=== PATIENT | female | born 1965 | race Caucasian/White ===

== ENCOUNTER 2023-05-17 22:36 | Outpatient (CLI) | payer BC, SELFPAY ==
[2023-05-17 18:45] LABS: Coronavirus 19, PCR Not Detected (NotDetected); Influenza A, PCR Not Detected (NotDetected); Influenza B, PCR Not Detected (NotDetected)
== END 2023-05-17 23:59 ==
LOC: LAB.DROPOF 22:36
PROVIDERS: PCP Nurse Practitioner; Visit Provider Nurse Practitioner
DX: J06.9 Acute upper respiratory infection, unspecified (principal); R51.9 Headache, unspecified; J02.9 Acute pharyngitis, unspecified
CPT/HCPCS: 87636

== ENCOUNTER 2024-07-04 09:33 | Inpatient (IN) | payer OTHER, SELFPAY ==
[2024-07-04] VITALS (21 sets, daily range): BP systolic 84–109; BP diastolic 55–76; PULSE 69–115; RESP 16–35; TEMP 36.4–36.8; O2SAT 87–100; BMI 21.2
--- NOTE | 2024-07-04 09:37 | ECG_ITS ---
APPROVED REPORT Exam: Resting ECG HR:108 bpm ECG Measurements Heart Rate 108 AXES [place] 120 P 85 QRSd 84 QRS 86 QT 305 T 76 QTc 368 Conclusion Sinus tachycardia Electronically signed by : VITOR LAU, 07/04/2024 14:57:18
--- NOTE | 2024-07-04 09:39 | PC.NURSE ---
respiratory notified of bi-pap order
--- NOTE | 2024-07-04 09:42 | XR_ITS ---
FINAL REPORT CLINICAL HISTORY: COPD exacerbation, hypoxia, soa FINDINGS: A single AP view of the chest was obtained. There is no prior exam for comparison. Bilateral hilar fullness could be vascular. Lymphadenopathy is not excluded. There is emphysema with increased interstitial markings which could represent edema or pneumonia. There are likely small bilateral pleural effusions. There is no pneumothorax. IMPRESSION: Emphysema with increased interstitial markings could represent edema or pneumonia with likely small pleural effusions. Bilateral hilar fullness could be vascular. Lymphadenopathy is not excluded. Reviewed, Interpreted and Dictated by Aminah Latif MD Transcribed by Amber Gould Authenticated and [facility]
--- NOTE | 2024-07-04 09:52 | PC.NURSE ---
xr at bedside
[2024-07-04 09:55] LABS: Lactate Venous 1.9 mmol/L (0.4-2.0); VBG Base Excess -6.8 mmol/L (-2.4-2.3); VBG HCO3 21.8 mmol/L (23-30); VBG Oxygen Saturation 61.8 % (50-70); VBG PO2 36.3 mmol/L (28-40); VBG Total CO2 23.6 mmol/L (23-27)
[2024-07-04 09:59] LABS: Basophils % 0.3 % (0.1-2.0); Eosinophils % 0.2 % (0.1-12.0); Hematocrit 46.7 % (37.0-47.0); Hemoglobin 15.2 g/dL (12.2-16.2); Lymphocytes # 1.1 K/mm3 (0.7-4.5); Lymphocytes % 11.1 % (10-50); Mean Corpuscular HGB Conc 32.5 g/dL (31.8-35.4); Mean Corpuscular Hemoglobin 30.3 pg (27.0-31.2); Mean Platelet Volume 10.9 fl (7.4-10.4); Monocytes # 0.7 K/mm3 (0.1-1.0); Monocytes % 6.6 % (1.7-9.3); Neutrophils # 8.1 K/mm3 (1.8-7.8); Neutrophils % 81.3 % (37.0-80.0); Platelet Count 159 K/mm3 (142-424); Red Blood Count 5.02 M/mm3 (4.20-5.40); Red Cell Distribution Width 14.1 % (11.5-17.5)
[2024-07-04] MEDS: METHYLPREDNISOLONE SOD SUCC 125MG VIAL 125 MG IV (10:00)
[2024-07-04] MEDS: MAGNESIUM SULFATE IN WATER 2 GM/50 ML PIGGYBACK IV (10:00)
--- NOTE | 2024-07-04 10:00 | PC.NURSE ---
vbg results given to md menchaca ph 7.17 co2 61 lactate 1.9
[2024-07-04 10:01] LABS: VBG PH 7.17 mmol/L (7.31-7.41)
[2024-07-04] MEDS: IPRATROPIUM/ALBUTEROL 3 ML NEB 9 ML IH (10:12)
[2024-07-04] MEDS: CEFTRIAXONE SODIUM 2 GM in 0.9 % SODIUM CHLORIDE 100 ML IV (10:21)
[2024-07-04 10:25] LABS: INR 0.99 (0.9-1.1); Prothrombin Time 11.1 seconds (10.1-12.5)
[2024-07-04 10:29] LABS: Alanine Aminotransferase 19 U/L (12-78); Albumin Level 4.2 g/dl (3.5-5.0); Albumin/Globulin Ratio 1.1 (1.1-1.8); Alkaline Phosphatase 94 U/L (38-126); Anion Gap 18.9 mEq/L (5-15); Aspartate Amino Transferase 28 U/L (14-36); Bilirubin,Total 0.4 mg/dl (0.2-1.3); Blood Urea Nitrogen 10 mg/dl (7-17); Calcium 9.4 mg/dl (8.4-10.2); Carbon Dioxide 22 mmol/L (22.0-30.0); Chloride 104 mmol/L (98-107); Creatinine Clearance Estimated 59 mL/min (50-200); Estimated Glomerular Filt Rate 65 ml/min (>60); GFR (African American) 78 ML/MIN (>60); Globulin 3.7 g/dL (1.3-3.2); Glucose 143 mg/dl (74-100); Potassium 4.9 mmoL/L (3.5-5.1); Sodium 140 mmol/L (136-145); Total Protein,Serum 7.9 g/dl (6.3-8.2)
[2024-07-04] MEDS: AZITHROMYCIN 500 MG in 0.9 % SODIUM CHLORIDE 250 ML 250 MG IV (10:30)
[2024-07-04 10:38] LABS: D-Dimer 1.11 ug/mL (0.0-0.5)
[2024-07-04 10:39] LABS: NT Pro Brain Natriuretic Pep. 775 pg/mL (0-125)
[2024-07-04 10:42] LABS: Troponin I < 0.01 ng/ml (0.00-0.034)
[2024-07-04 10:46] LABS: T4 (Thyroxine) 7.5 ug/dl (5.53-11.0)
--- NOTE | 2024-07-04 10:47 | ED_ITS ---
Discharge Plan Disposition Patient Disposition: Admitted Chief Complaint: Shortness of Breath/Dyspnea Prescriptions Prescriptions: No Action fluticasone propionate 50 mcg/actuation spray,suspension 1 spray intranasal DAILY Qty: 16 10RF clonazepam 1 mg tablet 1 mg PO DAILYP PRN (Reason: anxiety) gabapentin 800 mg tablet 800 mg PO QIDP PRN (Reason: Moderate Pain (Scale Score 5-6)) albuterol sulfate 90 mcg/actuation HFA aerosol inhaler 2 puff inhalation QIDP PRN (Reason: shortness of breath or wheezing) Rx Instructions: please provide with spacer and instructions Referrals Follow up/Referrals: Dannie Miles MD [Primary Care Provider] - See instructions Clinical Impressions Clinical Impression: Acute exacerbation of chronic obstructive pulmonary disease, Acute hypoxemic respiratory failure, Acute hypercapnic respiratory failure Print Language Print Language: Bol[place]ian Discharge ED Provider: Mikey Spence General Chief Complaint: Shortness of Breath/Dyspnea Stated Complaint: SOA Time Seen by Provider: 07/04/24 09:35 Mode of Arrival: Family Vehicle Source of Information: Patient Description of Symptoms (Recalled from ER Triage Doc. by RN): pt presents with soa and wheezing and cough that has gotten worse over last 2-3 days, pt smokes and has copd. pt can only speak one word at a time and is 81% on room air, 4L of O2 applied via nasal cannula during triage History of Present Illness HPI narrative: Please note that above description of symptoms, in this electronic medical record under categorization of recalled from ER triage doctor by RN are reflective of an initial nursing assessment, however, is not reflective of my full history and physical exam that was personally taken and clarified. Consequentially, this preceding description of symptoms, which may include the patient's categorized chief complaint in the EMR, do not reflect my personal clinical impression, and the ultimate description of history of present illness and patient stated complaints should be deferred to this section of the note. Unless stated otherwise or congruent with this section of the note, additional signs, symptoms, or incongruence should be interpreted as inaccurate with my clinical impression. Related Data Home Medications ?Medication ?Instructions ?Recorded ?Confirmed albuterol sulfate 90 mcg/actuation 2 puff inhalation QIDP PRN 07/04/24 07/04/24 aerosol inhaler shortness of breath or wheezing clonazepam 1 mg tablet 1 mg PO DAILYP PRN anxiety 07/04/24 07/04/24 gabapentin 800 mg tablet 800 mg PO QIDP PRN Moderate Pain 07/04/24 07/04/24 (Scale Score 5-6) Previous Rx's ?Medication ?Instructions ?Recorded fluticasone propionate 50 1 spray intranasal DAILY #16 grams 02/15/24 mcg/actuation nasal spray,suspension Allergies Allergy/AdvReac Type Severity Reaction Status Date / Time sumatriptan (From Imitrex) AdvReac Severe Tachycardia Verified 07/04/24 09:54 [facility] Disclaimer: The information contained in this section may have been updated after the patient was seen, as this information can be updated by other users. Medical History Long-term current use of anticonvulsant Dependence on nocturnal oxygen therapy Secondary polycythemia COPD (chronic obstructive pulmonary disease) Emphysema of lung Epilepsy Surgical History H/O: hysterectomy History of appendectomy History of cholecystectomy Family History Diabetes Brother Mother Adopted Social History Smoking Status: Current every day smoker alcohol intake: never substance use type: denies use current occupational status: employed Travel in the last 8 weeks: None Other Medical History Have you received the Pneumonia Vaccine: No ROS Obtained: Yes All systems reviewed & no additional complaints except as documented Physical Exam General General appearance: alert and in distress Neck Neck exam: Present trachea midline Chest Chest inspection: Present normal inspection and symmetric chest wall rise Respiratory Respiratory exam: Present respiratory distress, wheezes, accessory muscle use and prolonged expiratory phase; Absent stridor Cardiovascular Cardiovascular exam: Present normal rhythm, tachycardia and other (Pulses equal and symmetric in upper and lower extremities) Extremities Exam Extremities exam: Absent edema Neurological Exam Neurological exam: Present alert, oriented X3 and CN II-XII intact Skin Skin exam: Present warm and dry; Absent cyanosis, diaphoresis or pallor HEART Score HEART Score HEART Score assessment performed?: Yes HEART Score: 2 Critical Care Critical Care Time Critical Care Time: Yes (resp, ID) Attestation: On 07/04/24, the high probability of a clinically significant, sudden or life threatening deterioration of the following system(s) required my full and direct attention, intervention and personal management. The time I documented below is in addition to time spent performing reported procedures but includes the following listed in this critical care notation. Total Time Total Critical Care Time: 60 Medical Decision Making Medical Records Medical records reviewed: Yes I reviewed the patient's medical records. Suresh Inquiry Pt receiving controlled substance: No Suresh was queried for this patient: No Vital Signs Vital Signs: 07/04/24 09:39 07/04/24 09:45 07/04/24 09:45 Temperature Temperature Source Pulse Rate 98 H 109 H Pulse Rate [Left Radial] Respiratory Rate Blood Pressure 106/76 L Blood Pressure [Right Arm] Blood Pressure Mean Blood Pressure Mean [Right Arm] 02 Sat by Pulse Oximetry 87 L Oxygen Delivery Method Nasal Cannula Oxygen Flow Rate (LPM) Fraction of Inspired Oxygen 40 07/04/24 09:45 07/04/24 09:47 07/04/24 10:00 Temperature 97.8 F Temperature Source Axillary Pulse Rate 115 H 97 H Pulse Rate [Left Radial] 108 H Respiratory Rate 30 H 35 H Blood Pressure 96/72 L Blood Pressure [Right Arm] 106/76 L Blood Pressure Mean Blood Pressure Mean [Right Arm] 86 02 Sat by Pulse Oximetry 92 L 97 Oxygen Delivery Method Nasal Cannula BiPAP Oxygen Flow Rate (LPM) 4 Fraction of Inspired Oxygen 07/04/24 10:26 07/04/24 10:30 07/04/24 11:00 Temperature Temperature Source Pulse Rate 91 H 91 H 85 Pulse Rate [Left Radial] Respiratory Rate 21 21 21 Blood Pressure 94/64 L 91/59 L 97/60 L Blood Pressure [Right Arm] Blood Pressure Mean 72 67 70 Blood Pressure Mean [Right Arm] 02 Sat by Pulse Oximetry 100 100 100 Oxygen Delivery Method Oxygen Flow Rate (LPM) Fraction of Inspired Oxygen Lab Data Labs: Lab Results 07/04/24 09:45: VBG pH 7.17 L, VBG pCO2 61.0 H, VBG pO2 36.3, VBG HCO3 21.8 L, VBG Total CO2 23.6, VBG O2 Saturation 61.8, VBG Base Excess -6.8 L, VBG Lactic Acid 1.9 07/04/24 09:47: WBC 10.0, RBC 5.02, Hgb 15.2, Hct 46.7, MCV 93.0, MCH 30.3, MCHC 32.5, RDW 14.1, Plt Count 159, MPV 10.9 H, Neut % (Auto) 81.3 H, Lymph % (Auto) 11.1, [place] % (Auto) 6.6, Eos % (Auto) 0.2, Baso % (Auto) 0.3, Neut # (Auto) 8.1 H, Lymph # (Auto) 1.1, [place] # (Auto) 0.7, Eos # (Auto) 0.0, Baso # (Auto) 0.0, PT 11.1, INR 0.99, APTT 30.0, D-Dimer 1.11 H, Sodium 140, Potassium 4.9, Chloride 104, Carbon Dioxide 22, Anion Gap 18.9 H, BUN 10, Creatinine 0.90, Estimated Creat Clear 59, Estimated GFR 65, Est GFR ( Amer) 78, Glucose 143 H, Calcium 9.4, Total Bilirubin 0.4, AST 28, ALT 19, Alkaline Phosphatase 94, Troponin I < 0.01, NT-Pro-B Natriuret Pep 775 H, Total Protein 7.9, Albumin 4.2, Globulin 3.7 H, Albumin/Globulin Ratio 1.1, Procalcitonin 0.100, TSH 0.68, Thyroxine (T4) 7.5 07/04/24 09:47 07/04/24 09:47 Response Orders (Tests/Meds): ED MEDICATIONS Generic Name Dose Route Start Last Admin Trade Name Freq PRN Reason Stop Dose Admin Acetaminophen 650 mg 07/04/24 12:01 Acetaminophen 325mg Tab PO 08/03/24 12:00 Q4HP PRN Fever or Mild Pain (1-3) Albuterol/Ipratropium 3 ml 07/04/24 14:00 Ipratropium/Albuterol 3 Ml [facility] 08/03/24 13:59 Q4RT CATHIE Budesonide 0.5 mg 07/04/24 18:00 Budesonide 0.5mg/2ml [facility] 08/03/24 17:59 BIDRT CATHIE Enoxaparin Sodium 40 mg 07/05/24 09:00 Enoxaparin 40mg/0.4ml Syringe SUBCUT 08/04/24 08:59 DAILY CATHIE Sodium Chloride 1,570 mls @ 785 mls/hr 07/04/24 11:04 07/04/24 11:20 Sod Chlor 0.9% 1000ml Bag 30 ml/kg infuse over 2 hr (1570 ml) 07/04/24 13:03 Not Given IV .Q2H ONE Ondansetron HCl 4 mg 07/04/24 12:01 Ondansetron 4mg/2ml Vial IV 08/03/24 12:00 Q8HP PRN Nausea Discontinued Medications Generic Name Dose Route Start Last Admin Trade Name Freq PRN Reason Stop Dose Admin Albuterol/Ipratropium 9 ml 07/04/24 09:42 07/04/24 10:12 Ipratropium/Albuterol 3 Ml Neb IH 07/04/24 09:43 9 ml ONCE ONE Administration Magnesium Sulfate 2 gm in 50 mls @ 50 mls/hr 07/04/24 09:42 07/04/24 10:00 Magnesium Sulfate 2gm/50ml Premix IV 07/04/24 10:41 50 mls/hr ONCE ONE Administration Ceftriaxone Sodium 2 gm/ 100 mls @ 200 mls/hr 07/04/24 09:42 07/04/24 10:21 Sodium Chloride IV 07/04/24 10:11 200 mls/hr ONCE ONE Administration Azithromycin 500 mg/ Sodium 250 mls @ 250 mls/hr 07/04/24 09:42 07/04/24 10:30 Chloride IV 07/04/24 09:43 250 mls/hr ONCE ONE Administration Sodium Chloride 1,630 mls @ 815 mls/hr 07/04/24 09:57 07/04/24 10:01 Sod Chlor 0.9% 1000ml Bag 30 ml/kg infuse over 2 hr (1630 ml) 07/04/24 11:56 815 mls/hr IV Administration .Q2H ONE Iopamidol 70 ml 07/04/24 11:31 07/04/24 11:32 Iopamidol-370 (76%);100ml Bottle IV 07/04/24 11:32 70 ml ONCE ONE Administration Ketorolac Tromethamine 15 mg 07/04/24 11:49 07/04/24 11:51 Ketorolac 30mg/Ml Vial IV 07/04/24 11:50 15 mg ONCE ONE Administration Methylprednisolone Sodium Succinate 125 mg 07/04/24 09:42 07/04/24 10:00 Methylprednisolone Sod Succ 125mg Vial IV 07/04/24 09:43 125 mg ONCE ONE Administration Sodium Chloride 10 ml 07/04/24 11:31 07/04/24 11:32 Sodium Chloride 0.9% 10ml Syr (Rad Only) IV 07/04/24 11:32 10 ml ONCE ONE Administration Sodium Chloride 50 ml 07/04/24 11:31 07/04/24 11:32 0.9 % Sodium Chloride 50 Ml Vial IV 07/04/24 11:32 50 ml ONCE ONE Administration ORDERS Category Date Time Status CT angio chest PE protocol Stat Cat Scan 07/04/24 10:47 Taken Pulmonology Consult [Consult to Pulmonology] [CONS] Cons 07/04/24 12:03 Active Routine XR chest portable Stat Exams 07/04/24 09:42 Completed Complete Blood Count Auto Diff [facility] Lab 07/05/24 06:00 Ordered Complete Blood Count Auto Diff [facility] Lab 07/06/24 06:00 Ordered Complete Blood Count Auto Diff [facility] Lab 07/07/24 06:00 Ordered Complete Blood Count Auto Diff [facility] Lab 07/08/24 06:00 Ordered Complete Blood Count Auto Diff [facility] Lab 07/09/24 06:00 Ordered Complete Blood Count Auto Diff Stat Lab 07/04/24 09:47 Completed Comprehensive Metabolic Panel [facility] Lab 07/05/24 06:00 Ordered Comprehensive Metabolic Panel [facility] Lab 07/06/24 06:00 Ordered Comprehensive Metabolic Panel [facility] Lab 07/07/24 06:00 Ordered Comprehensive Metabolic Panel [facility] Lab 07/08/24 06:00 Ordered Comprehensive Metabolic Panel [facility] Lab 07/09/24 06:00 Ordered Comprehensive Metabolic Panel Stat Lab 07/04/24 09:47 Completed D-Dimer Stat Lab 07/04/24 09:47 Completed Lipid Panel [facility] Lab 07/05/24 06:00 Ordered Magnesium [facility] Lab 07/05/24 06:00 Ordered Magnesium [facility] Lab 07/06/24 06:00 Ordered Magnesium [facility] Lab 07/07/24 06:00 Ordered Magnesium [facility] Lab 07/08/24 06:00 Ordered Magnesium [facility] Lab 07/09/24 06:00 Ordered NT Pro Brain Natriuretic Pep. Stat Lab 07/04/24 09:47 Completed PT INR [Prothrombin Time INR] Stat Lab 07/04/24 09:47 Completed PTT [Activated Partial Thrombo Time] Stat Lab 07/04/24 09:47 Completed Procalcitonin Stat Lab 07/04/24 09:47 Completed Rapid PCR Covid and Flu A/B Stat Lab 07/04/24 09:39 Received T4 (Thyroxine) Stat Lab 07/04/24 09:47 Completed TSH [Thyroid Stimulating Hormone] Stat Lab 07/04/24 09:47 Completed Troponin I Q3H Lab 07/04/24 12:45 Ordered Troponin I Q3H Lab 07/04/24 15:45 Ordered Troponin I Stat Lab 07/04/24 09:47 Completed Blood Culture Stat Micro 07/04/24 09:45 Received Venous Blood Gas Stat RT 07/04/24 09:45 Completed MDM Narrative Medical Decision Narrative: 58-year-old female presenting with shortness of breath. Has a history of COPD still smoking half pack per day and this is not a current goal complicating care. States that she started feeling short of breath with cough 3 days ago. Does not typically have a chronic cough. Cough feels as if it should be productive, she has not been producing any expectorant or sputum. States that she has had tactile fevers and chills, no objective temperatures were measured. No chest pain, nausea, vomiting, diarrhea, or any other concerns. History was obtained via conversation with patient and . On arrival, patient in obvious respiratory distress, but hemodynamically stable, alert, oriented x4, appropriate, GCS 15, moving all extremities spontaneously, pupils equal and reactive to light. Full physical exam performed and significant for obvious respiratory distress with tachypnea, prolonged expiratory phase, speaking in partial sentences, quiet lungs with the exception of end expiratory wheezes, and associated tachycardia. No murmurs gallops or rubs. No lower extremity edema. Differential includes pneumothorax, PE, COPD exacerbation, bronchitis, pneumonia, ACS, ND, CHF, among others. Patient was given BiPAP, DuoNebs, IV magnesium, Solu-Medrol, ceftriaxone, azithromycin, fluid bolus for symptomatic management and correction of underlying abnormalities. Patient placed on continuous cardiac monitoring and continuous pulse ox with initial blood pressure 106/76, heart rate 98, saturation 81% on room air, 87% on 6 L nasal edema. Placed on BiPAP, 97% on BiPAP. Independent interpretation of EKG shows sinus tachycardia 108 bpm with HI interval 120, QRS 84, QTc 368 with normal axis, no acute ischemic change. Workup independently interpreted and significant for nonactionable CBC or chemistry, but patient's anion gap mildly elevated at 18.9, BNP 775, troponin negative. Patient's VBG with respiratory acidosis poorly compensated metabolically. pH 7.1, CO2 elevated at 61, oxygen normal at 36, bicarb low at 21.8. Negative lactic acid. Dimer elevated, CT PE was ordered. On independent interpretation of chest x-ray, patient has what appears to be developing airspace disease in the right middle lobe. See radiology read for full review of final results. Moderate risk Wells, dimer positive. CT PE with general groundglass opacities, no PE. Reevaluation, patient having continued chest pain. Repeat EKG was obtained. 73 bpm sinus rhythm with T wave inversions in V2 as well as aVL, but no contiguous leads. No elevations. No ischemic change. HI 136, QRS 92, QTc 437. Normal axis. I talked to patient about smoking cessation and she is agreeable. Patches were sent to pharmacy, but patient to be admitted. I talked to hospital medicine and agreeable to admission for acute hypercapnic and hypoxemic respiratory failure in the setting of COPD exacerbation. [employer] Attendant disclaimer Much of this encounter note is an electronic railroad track mechanic spoken language to printed text. Electronic railroad track mechanic of the spoken language may permit errors. Although I have reviewed the note, some errors may still exist.
--- NOTE | 2024-07-04 10:47 | CT_ITS ---
FINAL REPORT TECHNIQUE: Axial imaging of the chest is obtained after the administration of contrast. 3-D MIP reformatted images were also obtained and reviewed per PE protocol. This study was performed with techniques to keep radiation doses as low as reasonably achievable (ALARA). Individualized dose reduction techniques using automated exposure control or adjustment of mA and/or kV according to the patient's size were employed. CLINICAL HISTORY: elevated dimer, hypoxic resp failure COMPARISON: None FINDINGS: The pulmonary arteries are well filled. There is no evidence of pulmonary embolus. The main pulmonary arteries in the right and left pulmonary arteries are enlarged, consistent with pulmonary hypertension. There is no aortic dissection. Heart size is normal. There is no axillary lymphadenopathy. There are enlarged AP window nodes present, the largest measuring 33 mm in diameter, with a slightly superior node which measures 31 mm in diameter. There is mild right hilar adenopathy. Changes of emphysema are present. There are bilateral lower lobe airspace opacities with intralobular septal thickening, atelectasis versus mild edema. There are reticulonodular infiltrates in the right upper lobe and superior segment of the right lower lobe, worrisome for bronchopneumonia. There is no pleural or pericardial effusion. Limited evaluation of the upper abdomen is without acute abnormality. No acute osseous abnormality. IMPRESSION: No evidence of pulmonary embolism or aortic dissection. Right upper and lower lobe bronchopneumonia. Adenopathy in the mediastinum and right hilum, which may be reactive. Recommend a 3-month follow-up chest CT to reevaluate. Changes compatible with pulmonary hypertension. Reviewed, Interpreted and Dictated by Aminah Latif MD Transcribed by Roselyn Kincaid Authenticated and [facility]
[2024-07-04 11:00] LABS: Thyroid Stimulating Hormone 0.68 uIU/mL (0.465-4.68)
--- NOTE | 2024-07-04 11:21 | PC.NURSE ---
tranported to ct scan on venti mask at 15L
[2024-07-04] MEDS: IOPAMIDOL-370 (76%);100ML BOTTLE 70 ML IV (11:32)
[2024-07-04] MEDS: 0.9 % SODIUM CHLORIDE 50 ML VIAL IV (11:32)
[2024-07-04] MEDS: SODIUM CHLORIDE 0.9% 10ML SYR (RAD ONLY) 10 ML IV (11:32)
--- NOTE | 2024-07-04 11:41 | HMH.PHAINT1 ---
Pharmacy Intervention Comments: MEDICATION RECONCILIATION COMPLETED ON PATIENT USING EXTERNAL FILL HISTORY FORM PHARMACY AND LY REPORT. -CARA SANTIAGOD
[2024-07-04] MEDS: KETOROLAC 30MG/ML VIAL 15 MG IV (11:51)
[2024-07-04 11:54] LABS: Coronavirus 19, PCR Not Detected (NotDetected); Influenza A, PCR Not Detected (NotDetected); Influenza B, PCR Not Detected (NotDetected)
--- NOTE | 2024-07-04 12:12 | ECG_ITS ---
APPROVED REPORT Exam: Resting ECG HR:73 bpm ECG Measurements Heart Rate 73 AXES MI 136 P 83 QRSd 92 QRS 88 QT 412 T 71 QTc 437 Conclusion Sinus rhythm Electronically signed by : VITOR LAU, 07/04/2024 14:57:39
--- NOTE | 2024-07-04 12:47 | PC.NURSE ---
BED ASSIGNMENT TO 266 PROVIDED TO REGISTRATION. MONET ARAIZA NOTIFIED OF BED ASSIGNMENT.
--- NOTE | 2024-07-04 13:00 | PC.NURSE ---
called report to rikki viramontes in the icu and answered all questions
[2024-07-04 13:43] LABS: Troponin I < 0.01 ng/ml (0.00-0.034)
--- NOTE | 2024-07-04 13:48 | PC.NURSE ---
pt arrived to ICU unit via stretcher @[id number]
[2024-07-04] MEDS: IPRATROPIUM/ALBUTEROL 3 ML NEB IH ×3 (14:13→21:21)
[2024-07-04 16:35] LABS: Lactate Venous 1.8 mmol/L (0.4-2.0); VBG Base Excess -9.2 mmol/L (-2.4-2.3); VBG HCO3 18.1 mmol/L (23-30); VBG Oxygen Saturation 91.1 % (50-70); VBG PCO2 43.1 mmol/L (35-51); VBG PH 7.24 mmol/L (7.31-7.41); VBG PO2 63.9 mmol/L (28-40); VBG Total CO2 19.5 mmol/L (23-27)
--- NOTE | 2024-07-04 16:51 | P.HP_ITS ---
History of Present Illness *History of present illness: Angela Derrick is a 58-year-old female with a medical history significant for COPD on room air, anxiety/depression who presents with progressive shortness of breath at home. Patient states started 3 days ago with increased cough and wheezing, which progressively became worse at which point son drove patient to the hospital. She states she was using albuterol at home without improvement. Denies chest pain, fever/chills, abdominal pain. Workup in the ED significant for VBG pH 7.17 pCO2 61 requiring BiPAP, DuoNebs, Solu-Medrol 125 mg. AGAP 18.6, D-dimer 1.11. CTA chest revealed right upper and lower lobe bronchopneumonia and right-sided hilar adenopathy, pulmonary hypertension. WBC 10.0. Given ceftriaxone, azithromycin. Case discussed with ED provider and decision was made to admit patient for acute hypercapnic respiratory failure secondary to COPD exacerbation. [facility] Disclaimer: The information contained in this section may have been updated after the fahad smith was seen, as this information can be updated by other users. Medical History Long-term current use of anticonvulsant Dependence on nocturnal oxygen therapy Secondary polycythemia COPD (chronic obstructive pulmonary disease) Emphysema of lung Epilepsy Surgical History H/O: hysterectomy History of appendectomy History of cholecystectomy Family History Diabetes Brother Mother Adopted Social History (Updated 07/04/24 @ 14:24 by Blanka Brown RN) Smoking Status: Current every day smoker alcohol intake: never substance use type: denies use current occupational status: employed Travel in the last 8 weeks: None Have you lived/traveled outside US in past 30 days?: No Contact w/someone who lives/traveled outside US past 30 days?: No Exposure to someone with infectious disease in past 14 days?: No Do you have a fever (greater than 100.4 F or 38 C)?: No Have you tested positive for COVID-19: No Exposed to someone with COVID-19 in past 14 days?: No Do you have a sore throat?: No Do you have a cough?: No Do you have any weakness?: No Are you experiencing any nausea/vomitting?: No Do you have any diarrhea?: No Are you experiencing any unusual bleeding?: No Do you have any muscle aches/pain?: No Do you have any abdominal pain?: No Are you experiencing loss of taste or smell?: No Other Medical History Have you received the Flu Vaccine for this season: No Have you received the Pneumonia Vaccine: No Meds Home Medications and Allergies Home Medications ?Medication ?Instructions ?Recorded ?Confirmed ?Type fluticasone propionate 50 1 spray intranasal DAILY #16 grams 02/15/24 07/04/24 Rx mcg/actuation nasal spray,suspension albuterol sulfate 90 mcg/actuation 2 puff inhalation QIDP PRN 07/04/24 07/04/24 History aerosol inhaler shortness of breath or wheezing clonazepam 1 mg tablet 1 mg PO DAILYP PRN anxiety 07/04/24 07/04/24 History gabapentin 800 mg tablet 800 mg PO QIDP PRN Moderate Pain 07/04/24 07/04/24 History (Scale Score 5-6) New Prescriptions to Start Prescriptions: Allergies Allergy/AdvReac Type Severity Reaction Status Date / Time sumatriptan (From Imitrex) AdvReac Severe Tachycardia Verified 07/04/24 09:54 Exam Data for Last 24 hours Vital signs and Labs for Last 24 Hours: Temp Pulse Resp BP Pulse Ox O2 Del Method O2 Flow Rate 97.9 F 75 17 91/63 L 95 Nasal Cannula 4 07/04/24 16:00 07/04/24 16:00 07/04/24 16:00 07/04/24 16:00 07/04/24 16:00 07/04/24 16:00 07/04/24 16:00 FiO2 40 07/04/24 09:45 Laboratory Results - last 24 hr 07/04/24 09:39: SARS-CoV-2 (PCR) Not detected, Influenza A Untype (PCR) Not detected, Influenza Type B (PCR) Not detected 07/04/24 09:45: VBG pH 7.17 L, VBG pCO2 61.0 H, VBG pO2 36.3, VBG HCO3 21.8 L, VBG Total CO2 23.6, VBG O2 Saturation 61.8, VBG Base Excess -6.8 L, VBG Lactic Acid 1.9 07/04/24 09:47: WBC 10.0, RBC 5.02, Hgb 15.2, Hct 46.7, MCV 93.0, MCH 30.3, MCHC 32.5, RDW 14.1, Plt Count 159, MPV 10.9 H, Neut % (Auto) 81.3 H, Lymph % (Auto) 11.1, [place] % (Auto) 6.6, Eos % (Auto) 0.2, Baso % (Auto) 0.3, Neut # (Auto) 8.1 H, Lymph # (Auto) 1.1, [place] # (Auto) 0.7, Eos # (Auto) 0.0, Baso # (Auto) 0.0, PT 11.1, INR 0.99, APTT 30.0, D-Dimer 1.11 H, Sodium 140, Potassium 4.9, Chloride 104, Carbon Dioxide 22, Anion Gap 18.9 H, BUN 10, Creatinine 0.90, Estimated Creat Clear 59, Estimated GFR 65, Est GFR ( Amer) 78, Glucose 143 H, Calcium 9.4, Total Bilirubin 0.4, AST 28, ALT 19, Alkaline Phosphatase 94, Troponin I < 0.01, NT-Pro-B Natriuret Pep 775 H, Total Protein 7.9, Albumin 4.2, Globulin 3.7 H, Albumin/Globulin Ratio 1.1, Procalcitonin 0.100, TSH 0.68, Thyroxine (T4) 7.5 07/04/24 13:05: Troponin I < 0.01 07/04/24 15:45: VBG pH 7.24 L, VBG pCO2 43.1, VBG pO2 63.9 H, VBG HCO3 18.1 L, VBG Total CO2 19.5 L, VBG O2 Saturation 91.1 H, VBG Base Excess -9.2 L, VBG Lactic Acid 1.8 I & O for Last 24 hours: Intake & Output 07/01/24 07/02/24 07/03/24 07/04/24 23:59 23:59 23:59 23:59 Weight 54.431 kg Constitutional Constitutional: no acute distress *Routine HEENT Exam Head: Present normocephalic Eye: Present EOMI and PERRL ENT: Present mucous membranes moist *Routine Neck Exam Neck: Present supple; Absent lymphadenopathy *Routine Respiratory Exam Respiratory: Present wheezes and diminished air movement; Absent CTA bilaterally Comments: Moderate diffuse wheezing throughout lung [place]. *Routine Cardiovascular Exam Cardiovascular: Present RRR *Routine Abdominal Exam Abdominal: Present soft and normoactive bowel sounds; Absent tenderness *Routine Rectal Exam Rectal:: deferred *Routine Genitalia Exam Genitalia:: deferred *Routine Extremities Exam Extremities: Absent cyanosis, clubbing or edema *Routine Skin Exam Skin: Present warm; Absent rash *Routine Neurological Exam Neurological: Present alert and oriented X3 Assessment and Plan *Assessment and plan (1) Acute hypercapnic respiratory failure: Status: Acute Category: Medical Code(s): J96.02 - Acute respiratory failure with hypercapnia (2) Acute hypoxemic respiratory failure: Status: Acute Category: Medical Code(s): J96.01 - Acute respiratory failure with hypoxia (3) COPD (chronic obstructive pulmonary disease): Status: Acute Category: Medical Code(s): J44.9 - Chronic obstructive pulmonary disease, unspecified (4) Allergic rhinitis: Status: Acute Category: Medical Code(s): J30.9 - Allergic rhinitis, unspecified Plan Angela Meza is a 58-year-old female with a medical history significant for COPD on room air, anxiety/depression who presents with progressive shortness of breath at home. Patient states started 3 days ago with increased cough and wheezing, which progressively became worse at which point son drove patient to the hospital. She states she was using albuterol at home without improvement. Denies chest pain, fever/chills, abdominal pain. Workup in the ED significant for VBG pH 7.17 pCO2 61 requiring BiPAP, DuoNebs, Solu-Medrol 125 mg. AGAP 18.6, D-dimer 1.11. CTA chest revealed right upper and lower lobe bronchopneumonia and right-sided hilar adenopathy, pulmonary hypertension, but no PE. WBC 10.0. Given ceftriaxone, azithromycin. Case discussed with ED provider and decision was made to admit patient for acute hypercapnic respiratory failure secondary to COPD exacerbation. #Acute hypoxic, hypercapnic respiratory failure #COPD exacerbation #Community-acquired pneumonia #Acute metabolic encephalopathy ? Progressive shortness of breath, wheezing, coughing at home. ? Initial VBG pH 7.17, pCO2 61, CTA showing right-sided bronchopneumonia. WBC 10.0. No PE. ? Initiated on BiPAP with improvement in mentation, respiratory status and reassuring VBG pCO2. ? Continue DuoNebs every 4 hours, Pulmicort twice daily. ? Prednisone 40 mg daily starting tomorrow. ? Ceftriaxone, azithromycin day 04/15. Follow-up sputum, blood cultures. ? Pulmonology consulted, pending further recommendations. ? Follow-up morning VBG. #Allergic rhinitis ? Continue home Flonase, start cetirizine. #High anion gap metabolic acidosis ? VBG pH improved from 7.17-7.24, initial AGAP 18.9. Lactic acid, urea normal. ? Suspect starvation ketosis, follow-up UA, acetone, alcohol, salicylic acid levels. ? Continue oral food/fluid repletion. #Anxiety/depression ? Patient's daughter with cerebral palsy unfortunately last year. ? Continue home clonazepam, gabapentin as needed. Full code DVT prophylaxis: Lovenox 40 mg
[2024-07-04 16:59] LABS: Troponin I < 0.01 ng/ml (0.00-0.034)
[2024-07-04 17:03] LABS: Salicylate < 1.0 mg/dL (2.0-20.0)
[2024-07-04 17:18] LABS: Ethyl Alcohol < 10 mg/dl (0-10)
[2024-07-04] MEDS: LORATADINE 10MG TABLET 10 MG PO (17:47)
[2024-07-04 18:01] LABS: Acetone, Serum (Rapid) None Detected (None Detect)
[2024-07-04] MEDS: BUDESONIDE 0.5MG/2ML NEB 0.5 MG IH (18:17)
[2024-07-04] MEDS: ACETAMINOPHEN 325MG TAB 650 MG PO (18:44)
[2024-07-04 19:33] LABS: Microscopic, Urine URINE MICROSCOPIC (MICROSCOPIC)
[2024-07-04 19:44] LABS: Appearance,Urine CLEAR (Clear); Bilirubin,Urine Negative (Negative); Blood, Urine Negative (Negative); Color,Urine YELLOW (Yellow); Glucose,Urine (UA) Negative (Negative); Ketones,Urine Negative (Negative); Leukocyte Esterase,Urine Negative (Negative); Nitrate,Urine Negative (Negative); Protein,Urine Negative (Negative); Urobilinogen,Urine 0.2 EU/dl (0.2)
[2024-07-04 20:59] LABS: WBC,Urine Occasional #/hpf (0-3)
[2024-07-04] MEDS: clonazePAM 1MG TABLET 1 MG PO (21:43)
[2024-07-04] MEDS: GABAPENTIN 800MG TABLET 800 MG PO (21:52)
[2024-07-05] VITALS (16 sets, daily range): BP systolic 80–111; BP diastolic 51–75; PULSE 70–100; RESP 17–21; TEMP 36.6–37.2; O2SAT 90–96; BMI 20.7
[2024-07-05] MEDS: PHENOL THROAT SPRAY 177 ML BOTTLE MM (01:32)
[2024-07-05] MEDS: IPRATROPIUM/ALBUTEROL 3 ML NEB IH ×6 (01:38→21:41)
[2024-07-05] MEDS: RINGERS SOLUTION,LACTATED 500 ML 250 ML IV (01:46)
[2024-07-05 06:08] LABS: Basophils % 0.2 % (0.1-2.0); Hematocrit 39.1 % (37.0-47.0); Lymphocytes % 9.3 % (10-50); Mean Corpuscular HGB Conc 32.2 g/dL (31.8-35.4); Mean Corpuscular Hemoglobin 29.8 pg (27.0-31.2); Mean Corpuscular Volume 92.4 fl (81-99); Mean Platelet Volume 11.2 fl (7.4-10.4); Monocytes # 0.3 K/mm3 (0.1-1.0); Monocytes % 3.3 % (1.7-9.3); Neutrophils # 9.1 K/mm3 (1.8-7.8); Neutrophils % 86.9 % (37.0-80.0); Platelet Count 136 K/mm3 (142-424); Red Blood Count 4.23 M/mm3 (4.20-5.40); Red Cell Distribution Width 13.8 % (11.5-17.5); White Blood Count 10.4 K/mm3 (4.8-10.8)
[2024-07-05 06:22] LABS: Hemoglobin 12.6 g/dL (12.2-16.2)
[2024-07-05] MEDS: BUDESONIDE 0.5MG/2ML NEB 0.5 MG IH ×2 (06:24→18:52)
[2024-07-05 06:36] LABS: Alanine Aminotransferase 24 U/L (12-78); Albumin Level 3.8 g/dl (3.5-5.0); Alkaline Phosphatase 58 U/L (38-126); Anion Gap 15.4 mEq/L (5-15); Aspartate Amino Transferase 39 U/L (14-36); Bilirubin,Total 0.7 mg/dl (0.2-1.3); Blood Urea Nitrogen 10 mg/dl (7-17); Calcium 8.4 mg/dl (8.4-10.2); Carbon Dioxide 18 mmol/L (22.0-30.0); Chloride 109 mmol/L (98-107); Chol/HDL Ratio 2.6 (1-3.5); Cholesterol 100 mg/dl (140-200); Creatinine Clearance Estimated 87 mL/min (50-200); Estimated Glomerular Filt Rate 103 ml/min (>60); GFR (African American) 125 ML/MIN (>60); Globulin 3.7 g/dL (1.3-3.2); Glucose 121 mg/dl (74-100); HDL Cholesterol 39 mg/dl (40-60); Magnesium 2.6 mg/dl (1.6-2.3); Potassium 5.4 mmoL/L (3.5-5.1); Sodium 137 mmol/L (136-145); Total Protein,Serum 7.5 g/dl (6.3-8.2); Triglycerides 63 mg/dl (30-150); VLDL Cholesterol 13 mg/dL (0-40)
--- NOTE | 2024-07-05 06:38 | PC.NURSE ---
Pt A/O x4. Pt has continued to require 4 L nc throughout shift. Tolerating well with sat >90% while at rest. Pt does desat to low 80s with exertion but recovers quickly. Pt has voiced complaints of intermittent cough and stated she uses throat spray for it at home. MD notified and medication ordered and administered. Pt also became hypotensive during night. MD notified and 250ml bolus given. BP has remained stable since receiving bolus with MAP >65. Pt total urine output for shift 2400ml. Call light within reach.
[2024-07-05 06:55] LABS: Direct LDL Cholesterol < 30.00 mg/dL (100-129)
[2024-07-05] MEDS: predniSONE 20MG TAB 40 MG PO (08:17)
[2024-07-05] MEDS: AZITHROMYCIN 250MG TABLET 250 MG PO (08:17)
[2024-07-05] MEDS: FLUTICASONE PROP 50MCG NASAL SPRAY 16GM 1 SPRAY NS (08:17)
[2024-07-05] MEDS: LORATADINE 10MG TABLET 10 MG PO (08:17)
[2024-07-05] MEDS: LOKELMA 5GM PACKET 10 GM PO (08:18)
[2024-07-05] MEDS: CEFTRIAXONE 1 GM 1 GM in 0.9 % SODIUM CHLORIDE 50 ML IV (08:18)
[2024-07-05] MEDS: GABAPENTIN 800MG TABLET 800 MG PO ×3 (08:19→21:07)
[2024-07-05] MEDS: LACTATED RINGERS 1000ML 500 ML 999 ML IV (09:32)
--- NOTE | 2024-07-05 09:51 | P.CONS_ITS ---
History of Present Illness History of present illness: Ms. Meza is a 58-year-old female current smoker greater than [id number] smoking history using albuterol as mentation during the daytime, admits using nocturnal oxygen supplementation at 2 L, prior history of seizure disorder presented to the ER complaining of worsening respiratory distress for the last 2 to 3 days with worsening cough subsequently phlegm along with fevers and pulmonary was called for further evaluation and management. [facility] Disclaimer: The information contained in this section may have been updated after the patient was seen, as this information can be updated by other users. Medical History (Updated 07/05/24 @ 12:52 by Chetna Muñiz MD) Pneumonia Long-term current use of anticonvulsant Dependence on nocturnal oxygen therapy Secondary polycythemia COPD (chronic obstructive pulmonary disease) Emphysema of lung Epilepsy Surgical History H/O: hysterectomy History of appendectomy History of cholecystectomy Family History Diabetes Brother Mother Adopted Social History (Updated 07/04/24 @ 14:24 by Blanka Brown RN) Smoking Status: Current every day smoker alcohol intake: never substance use type: denies use current occupational status: employed Travel in the last 8 weeks: None Have you lived/traveled outside US in past 30 days?: No Contact w/someone who lives/traveled outside US past 30 days?: No Exposure to someone with infectious disease in past 14 days?: No Do you have a fever (greater than 100.4 F or 38 C)?: No Have you tested positive for COVID-19: No Exposed to someone with COVID-19 in past 14 days?: No Do you have a sore throat?: No Do you have a cough?: No Do you have any weakness?: No Are you experiencing any nausea/vomitting?: No Do you have any diarrhea?: No Are you experiencing any unusual bleeding?: No Do you have any muscle aches/pain?: No Do you have any abdominal pain?: No Are you experiencing loss of taste or smell?: No Review of Systems Constitutional Constitutional: Reports anorexia, Reports body ache(s) and Reports fatigue Eyes Eyes: Denies eye discharge, Denies dry eyes, Denies irritation and Denies itchy eyes ENT Ears, Nose, Mouth, and Throat: Denies epistaxis, Denies facial pain, Denies lip swelling and Denies throat swelling *Cardiovascular Cardiovascular: Reports dyspnea and Reports dyspnea on exertion *Respiratory Respiratory: Reports change in phlegm color, Reports chest congestion, Reports cough, Reports dyspnea, Reports dyspnea on exertion, Reports excessive phlegm production and Reports wheezing *Gastrointestinal Gastrointestinal: Denies abdominal pain, Denies belching and Denies cramping *Musculoskeletal Musculoskeletal: Reports back pain, Reports myalgias and Reports other (No small joint swelling or Pain) Psychiatric Psychiatric: Denies homicidal ideation and Denies suicidal ideation Endocrine Endocrine: Reports fatigue and Denies heat intolerance Hematologic/Lymphatic Hematologic/Lymphatic: Denies easy bleeding and Denies lymphadenopathy Allergic/Immunologic Allergic/Immunologic: Denies itchy eyes, Denies lip swelling, Denies throat swelling and Reports wheezing Pulmonology Exam Inpatient Vital signs and Labs for Last 24 Hours: Temp Pulse Resp BP Pulse Ox O2 Del Method O2 Flow Rate 98.5 F 91 H 18 86/53 L 92 L Nasal Cannula 3 07/05/24 08:00 07/05/24 09:04 07/05/24 08:00 07/05/24 08:00 07/05/24 09:22 07/05/24 09:22 07/05/24 09:22 FiO2 40 07/04/24 09:45 Laboratory Results - last 24 hr 07/04/24 09:39: SARS-CoV-2 (PCR) Not detected, Influenza A Untype (PCR) Not detected, Influenza Type B (PCR) Not detected 07/04/24 09:45: VBG pH 7.17 L, VBG pCO2 61.0 H, VBG pO2 36.3, VBG HCO3 21.8 L, VBG Total CO2 23.6, VBG O2 Saturation 61.8, VBG Base Excess -6.8 L, VBG Lactic Acid 1.9 07/04/24 09:47: WBC 10.0, RBC 5.02, Hgb 15.2, Hct 46.7, MCV 93.0, MCH 30.3, MCHC 32.5, RDW 14.1, Plt Count 159, MPV 10.9 H, Neut % (Auto) 81.3 H, Lymph % (Auto) 11.1, [place] % (Auto) 6.6, Eos % (Auto) 0.2, Baso % (Auto) 0.3, Neut # (Auto) 8.1 H, Lymph # (Auto) 1.1, [place] # (Auto) 0.7, Eos # (Auto) 0.0, Baso # (Auto) 0.0, PT 11.1, INR 0.99, APTT 30.0, D-Dimer 1.11 H, Sodium 140, Potassium 4.9, Chloride 104, Carbon Dioxide 22, Anion Gap 18.9 H, BUN 10, Creatinine 0.90, Estimated Creat Clear 59, Estimated GFR 65, Est GFR ( Amer) 78, Glucose 143 H, Calcium 9.4, Total Bilirubin 0.4, AST 28, ALT 19, Alkaline Phosphatase 94, Troponin I < 0.01, NT-Pro-B Natriuret Pep 775 H, Total Protein 7.9, Albumin 4.2, Globulin 3.7 H, Albumin/Globulin Ratio 1.1, Procalcitonin 0.100, TSH 0.68, Thyroxine (T4) 7.5 07/04/24 13:05: Troponin I < 0.01 07/04/24 15:45: VBG pH 7.24 L, VBG pCO2 43.1, VBG pO2 63.9 H, VBG HCO3 18.1 L, V BG Total CO2 19.5 L, VBG O2 Saturation 91.1 H, VBG Base Excess -9.2 L, VBG Lactic Acid 1.8 07/04/24 16:25: Troponin I < 0.01, Salicylates < 1.0 L, Plasma/Serum Alcohol < 10, Acetone Level None detected 07/04/24 19:15: Urine Color Yellow, Urine Appearance Clear, Urine pH 7.0, Ur Specific [place] 1.010, Urine Protein Negative, Urine Glucose (UA) Negative, Urine Ketones Negative, Urine Blood Negative, Urine Nitrate Negative, Urine Bilirubin Negative, Urine Urobilinogen 0.2, Ur Leukocyte Esterase Negative, Urine RBC 3-5, Urine WBC Occasional, Ur Squamous Epith Cells 3-5 07/05/24 05:38: WBC 10.4, RBC 4.23, Hgb 12.6 D, Hct 39.1, MCV 92.4, MCH 29.8, MCHC 32.2, RDW 13.8, Plt Count 136 L, MPV 11.2 H, Neut % (Auto) 86.9 H, Lymph % (Auto) 9.3 L, [place] % (Auto) 3.3, Eos % (Auto) 0.0 L, Baso % (Auto) 0.2, Neut # (Auto) 9.1 H, Lymph # (Auto) 1.0, [place] # (Auto) 0.3, Eos # (Auto) 0.0, Baso # (Auto) 0.0, Sodium 137, Potassium 5.4 H, Chloride 109 H, Carbon Dioxide 18 L, A nion Gap 15.4 H, BUN 10, Creatinine 0.60 D, Estimated Creat Clear 87, Estimated GFR 103, Est GFR ( Amer) 125 D, Glucose 121 H, Calcium 8.4, Magnesium 2.6 H, Total Bilirubin 0.7, AST 39 H D, ALT 24 D, Alkaline Phosphatase 58, Total Protein 7.5, Albumin 3.8, Globulin 3.7 H, Albumin/Globulin Ratio 1.0 L, Triglycerides 63, Cholesterol 100 L, LDL Cholesterol Direct < 30.00 L, VLDL Cholesterol 13, HDL Cholesterol 39 L, Cholesterol/HDL Ratio 2.6 I & O for Labs for Last 24 Hours: Intake & Output 07/02/24 07/03/24 07/04/24 07/05/24 23:59 23:59 23:59 23:59 Intake Total 335 / 335 700 / 700 Output Total 1200 / 1200 1700 / 1700 Balance -865 / -865 -1000 / -1000 Weight 120 lb 117 lb 3.2 oz Microbiology Reports for the Last 24 Hours: Microbiology 07/04/24 17:00 Sputum - Expectorated Sputum Gram Stain - Final Constitutional: Present moderate distress Head: Present normocephalic and atraumatic ENT: Present normal exam, normal oropharynx and mucous membranes moist Neck: Present normal inspection and full ROM Respiratory: Present prolonged expiratory phase, respiratory distress, rhonchi, wheezes and diminished air movement; Absent able to speak in complete sentences Cardiac: Present S1/S2, Tachycardia and radial pulses present GI: Present soft and distention; Absent tenderness or guarding Rectal (female): Present deferred (female): Present deferred Skin: Present intact; Absent cyanosis or jaundice Neuro: Present alert, awake and oriented x 3 Extremities: Present normal inspection; Absent edema, clubbing or cyanosis Psychiatric: Present normal affect and cooperative Meds Home Medications and Allergies Home Medications ?Medication ?Instructions ?Recorded ?Confirmed ?Type fluticasone propionate 50 1 spray intranasal DAILY #16 grams 02/15/24 07/04/24 Rx mcg/actuation nasal spray,suspension albuterol sulfate 90 mcg/actuation 2 puff inhalation QIDP PRN 07/04/24 07/04/24 History aerosol inhaler shortness of breath or wheezing clonazepam 1 mg tablet 1 mg PO DAILYP PRN anxiety 07/04/24 07/04/24 History gabapentin 800 mg tablet 800 mg PO QIDP PRN Moderate Pain 07/04/24 07/04/24 History (Scale Score 5-6) New Prescriptions to Start Prescriptions: Allergies Allergy/AdvReac Type Severity Reaction Status Date / Time sumatriptan (From Imitrex) AdvReac Severe Tachycardia Verified 07/04/24 09:54 Results Laboratory Findings 07/05/24 05:38 07/05/24 05:38 PT/INR, D-dimer PT 11.1 seconds (10.1-12.5) 07/04/24 09:47 INR 0.99 (0.9-1.1) 07/04/24 09:47 D-Dimer 1.11 ug/mL (0.0-0.5) H 07/04/24 09:47 Abnormal lab findings: Abnormal Labs 07/04/24 07/04/24 07/04/24 09:45 09:47 15:45 Plt Count MPV 10.9 H Neut % (Auto) 81.3 H Lymph % (Auto) Eos % (Auto) Neut # (Auto) 8.1 H D-Dimer 1.11 H VBG pH 7.17 L 7.24 L VBG pCO2 61.0 H VBG pO2 63.9 H VBG HCO3 21.8 L 18.1 L VBG Total CO2 19.5 L VBG O2 Saturation 91.1 H VBG Base Excess -6.8 L -9.2 L Potassium Chloride Carbon Dioxide Anion Gap 18.9 H Glucose 143 H Magnesium AST NT-Pro-B Natriuret Pep 775 H Globulin 3.7 H Albumin/Globulin Ratio Cholesterol LDL Cholesterol Direct HDL Cholesterol Salicylates 07/04/24 07/05/24 16:25 05:38 Plt Count 136 L MPV 11.2 H Neut % (Auto) 86.9 H Lymph % (Auto) 9.3 L Eos % (Auto) 0.0 L Neut # (Auto) 9.1 H D-Dimer VBG pH VBG pCO2 VBG pO2 VBG HCO3 VBG Total CO2 VBG O2 Saturation VBG Base Excess Potassium 5.4 H Chloride 109 H Carbon Dioxide 18 L Anion Gap 15.4 H Glucose 121 H Magnesium 2.6 H AST 39 H D NT-Pro-B Natriuret Pep Globulin 3.7 H Albumin/Globulin Ratio 1.0 L Cholesterol 100 L LDL Cholesterol Direct < 30.00 L HDL Cholesterol 39 L Salicylates < 1.0 L Assessment and Plan *Assessment and plan (1) Acute hypoxemic respiratory failure: Status: Acute Category: Medical Code(s): J96.01 - Acute respiratory failure with hypoxia (2) Acute hypercapnic respiratory failure: Status: Acute Category: Medical Code(s): J96.02 - Acute respiratory failure with hypercapnia (3) Acute exacerbation of chronic obstructive pulmonary disease: Status: Acute Category: Medical Code(s): J44.1 - Chronic obstructive pulmonary disease with (acute) exacerbation (4) Pneumonia: Status: Acute Category: Medical Code(s): J18.9 - Pneumonia, unspecified organism Plan Ms. Meza is a 58-year-old female current smoker greater than [id number] smoking history using albuterol as mentation during the daytime, admits using nocturnal oxygen supplementation at 2 L, prior history of seizure disorder presented to the ER complaining of worsening respiratory distress for the last 2 to 3 days with worsening cough subsequently phlegm along with fevers and pulmonary was called for further evaluation and management. Afebrile. Hemodynamically stable. No evidence of leukocytosis. COVID-19 and flu PCR panel negative. CTA upon admission no evidence of pulmonary embolism. Diffuse centrilobular upper lobe predominant emphysematous changes. No dense consolidation noted. Bronchial thickening. Lymphadenopathy noted predominantly station 5 along with questionable right hilar adenopathy.Venous blood gas upon admission hypercarbic respiratory failure pH is 7.17 pCO2 61.4, improved to 7.24 and 43.1. ABG from this morning on 3l NC pH is 7.36 with a pCO2 40.1 and pO2 of 57.9 On examination moderate respiratory distress. Bilateral diffuse wheezing and rhonchi noted. Plan: DuoNebs every 4 hours along with Pulmicort every 12 scheduled Continue prednisone 40 mg daily x 5 days Continue ceftriaxone and azithromycin pending sputum culture results Full respiratory viral PCR panel CT scan also concerning for mediastinal lymphadenopathy along with concerns for pulmonary hypertension with dilated PA. Will follow as an outpatient basis.
[2024-07-05] MEDS: IBUPROFEN 400 MG TABLET PO (10:01)
[2024-07-05 10:45] LABS: ABG Base Excess -2.9 mmol/L (-2.4-2.3); ABG HCO3 22.5 mmhg (22.0-26.0); ABG Oxygen Saturation 91 % (90-100); ABG PCO2 40.1 mmhg (35.0-45.0); ABG PH 7.37 mmol/L (7.35-7.45); ABG PO2 57.9 mmhg (80-100); ABG TCO2 23.7 mmhg (23-27); Allen's Test ACCEPTABLE; Oxygen 3LPM %; Source R RADIAL
--- NOTE | 2024-07-05 11:52 | PC.NURSE ---
Pt transported by bed to med/surg floor @ this time by staff.
[2024-07-05 13:52] LABS: Adenovirus,PCR Not Detected (NotDetected); Bordetella Pertussis Not Detected (NotDetected); Chlamydophila Pneumoniae, PCR Not Detected (NotDetected); Coronavirus 19, PCR Not Detected (NotDetected); Coronavirus 229E Not Detected (NotDetected); Coronavirus NL63 Not Detected (NotDetected); Coronavirus OC43 Not Detected (NotDetected); Coronovirus HKU1,PCR Not Detected (NotDetected); Human Metapneumovirus Not Detected (NotDetected); Influenza A, PCR Not Detected (NotDetected); Influenza AH1, 2009 Not Detected (NotDetected); Influenza AH1, PCR Not Detected (NotDetected); Influenza AH3,PCR Not Detected (NotDetected); Influenza B, PCR Not Detected (NotDetected); Mycoplasma Pneumoniae, PCR Not Detected (NotDetected); Parainfluenza 1, PCR Not Detected (NotDetected); Parainfluenza 2, PCR Not Detected (NotDetected); Parainfluenza 3, PCR Not Detected (NotDetected); Parainfluenza 4, PCR Not Detected (NotDetected); Rhinovirus/Enterovirus Not Detected (NotDetected)
[2024-07-05 15:33] LABS: Respiratory Syncytial Virus Detected (NotDetected)
[2024-07-05] MEDS: clonazePAM 1MG TABLET 1 MG PO (21:07)
--- NOTE | 2024-07-05 22:29 | EXP.PN ---
Subjective *Date: 07/05/24 *Time: 22:29 Interval history: Patient still feeling quite weak today, but improved respiratory status. Continue breathing treatments, steroids, antibiotics. Exam Data for Last 24 hours Vital signs and Labs for Last 24 Hours: Temp Pulse Resp BP Pulse Ox O2 Del Method O2 Flow Rate 97.9 F 76 19 105/71 L 90 L Nasal Cannula 3 07/05/24 20:00 07/05/24 21:41 07/05/24 16:00 07/05/24 20:00 07/05/24 20:00 07/05/24 21:00 07/05/24 21:00 FiO2 40 07/04/24 09:45 Laboratory Results - last 24 hr 07/05/24 05:38: WBC 10.4, RBC 4.23, Hgb 12.6 D, Hct 39.1, MCV 92.4, MCH 29.8, MCHC 32.2, RDW 13.8, Plt Count 136 L, MPV 11.2 H, Neut % (Auto) 86.9 H, Lymph % (Auto) 9.3 L, [place] % (Auto) 3.3, Eos % (Auto) 0.0 L, Baso % (Auto) 0.2, Neut # (Auto) 9.1 H, Lymph # (Auto) 1.0, [place] # (Auto) 0.3, Eos # (Auto) 0.0, Baso # (Auto) 0.0, Sodium 137, Potassium 5.4 H, Chloride 109 H, Carbon Dioxide 18 L, Anion Gap 15.4 H, BUN 10, Creatinine 0.60 D, Estimated Creat Clear 87, Estimated GFR 103, Est GFR ( Amer) 125 D, Glucose 121 H, Calcium 8.4, Magnesium 2.6 H, Total Bilirubin 0.7, AST 39 H D, ALT 24 D, Alkaline Phosphatase 58, Total Protein 7.5, Albumin 3.8, Globulin 3.7 H, Albumin/Globulin Ratio 1.0 L, Triglycerides 63, Cholesterol 100 L, LDL Cholesterol Direct < 30.00 L, VLDL Cholesterol 13, HDL Cholesterol 39 L, Cholesterol/HDL Ratio 2.6 07/05/24 10:42: Specimen Source R radial, O2 % 3lpm, ABG pH 7.37, ABG pCO2 40.1, ABG pO2 57.9 L, ABG HCO3 22.5, ABG Total CO2 23.7, ABG O2 Saturation 91, ABG Base Excess -2.9 L, Tae Test Acceptable 07/05/24 12:52: Chlamy pneumoniae PCR Not detected, Adenovirus (PCR) Not detected, B. pertussis DNA (PCR) Not detected, Coronavirus OC43 (PCR) Not detected, Coronavirus HKU1 (PCR) Not detected, Coronavirus 229E (PCR) Not detected, SARS-CoV-2 (PCR) Not detected, Coronavirus NL63 (PCR) Not detected, Human Metapneumovir PCR Not detected, Influenza A (H1) PCR Not detected, Influ A (H1N1/09) PCR Not detected, Influenza A (H3) PCR Not detected, Influenza Type A (PCR) Not detected, Influenza Type B (PCR) Not detected, M. pneumoniae (PCR) Not detected, Parainfluenza 1 (PCR) Not detected, Parainfluenza 2 (PCR) Not detected, Parainfluenza 3 (PCR) Not detected, Parainfluenza 4 (PCR) Not detected, RSV (PCR) Detected A, Entero/Rhino (PCR) Not detected I & O for Last 24 hours: Intake & Output 07/02/24 07/03/24 07/04/24 07/05/24 23:59 23:59 23:59 23:59 Intake Total 335 / 335 1920 / 1920 Output Total 1200 / 1200 1999 / 1999 Balance -865 / -865 -80 / -80 Weight 54.431 kg 53.161 kg Microbiology Reports for the Last 24 Hours: Microbiology 07/04/24 17:00 Sputum - Expectorated Sputum Gram Stain - Final 07/04/24 17:00 Sputum - Expectorated Sputum Sputum Culture - Preliminary 07/04/24 09:45 Blood Blood Culture - Preliminary NO GROWTH AFTER 24 HOURS 07/04/24 09:45 Blood Blood Culture - Preliminary NO GROWTH AFTER 24 HOURS Constitutional Constitutional: no acute distress *Routine HEENT Exam Head: Present normocephalic Eye: Present EOMI and PERRL ENT: Present mucous membranes moist *Routine Neck Exam Neck: Present supple; Absent lymphadenopathy *Routine Respiratory Exam Respiratory: Present wheezes and diminished air movement *Routine Cardiovascular Exam Cardiovascular: Present RRR *Routine Abdominal Exam Abdominal: Present soft and normoactive bowel sounds; Absent tenderness *Routine Extremities Exam Extremities: Absent cyanosis, clubbing or edema *Routine Skin Exam Skin: Present warm; Absent rash *Routine Neurological Exam Neurological: Present alert and oriented X3 Assessment and Plan *Assessment and plan (1) Acute hypercapnic respiratory failure: Status: Acute Category: Medical Code(s): J96.02 - Acute respiratory failure with hypercapnia (2) Acute hypoxemic respiratory failure: Status: Acute Category: Medical Code(s): J96.01 - Acute respiratory failure with hypoxia (3) COPD (chronic obstructive pulmonary disease): Status: Acute Category: Medical Code(s): J44.9 - Chronic obstructive pulmonary disease, unspecified (4) Allergic rhinitis: Status: Acute Category: Medical Code(s): J30.9 - Allergic rhinitis, unspecified Plan Angela Meza is a 58-year-old female with a medical history significant for COPD on room air, anxiety/depression who presents with progressive shortness of breath at home. Patient states started 3 days ago with increased cough and wheezing, which progressively became worse at which point son drove patient to the hospital. She states she was using albuterol at home without improvement. Denies chest pain, fever/chills, abdominal pain. Workup in the ED significant for VBG pH 7.17 pCO2 61 requiring BiPAP, DuoNebs, Solu-Medrol 125 mg. AGAP 18.6, D-dimer 1.11. CTA chest revealed right upper and lower lobe bronchopneumonia and right-sided hilar adenopathy, pulmonary hypertension, but no PE. WBC 10.0. Given ceftriaxone, azithromycin. Case discussed with ED provider and decision was made to admit patient for acute hypercapnic respiratory failure secondary to COPD exacerbation. #Acute hypoxic, hypercapnic respiratory failure #COPD exacerbation #Community-acquired pneumonia #Acute metabolic encephalopathy ? Presented with progressive shortness of breath, wheezing, coughing at home. ? Initial VBG pH 7.17, pCO2 61, CTA showing right-sided bronchopneumonia. WBC 10.0. No PE. ? Initiated on BiPAP with improvement in mentation, respiratory status and reassuring VBG pCO2. Weaned to 3 L nasal cannula. ? Continue DuoNebs every 4 hours, Pulmicort twice daily. ? Prednisone 40 mg daily. ? Ceftriaxone, azithromycin day 2/5. Follow-up sputum, blood cultures. ? Pulmonology consulted, will continue to follow he has a lymphadenopathy on an outpatient basis. Agreed with plan. ? Requiring 3 L nasal cannula, wean as tolerated. #Allergic rhinitis ? Continue home Flonase, start cetirizine. #High anion gap metabolic acidosis ? VBG pH improved from 7.17-7.24, initial AGAP 18.9. Lactic acid, urea normal. ? AGAP improved to 15.4, continue oral rehydration. Acetone, salicylate levels normal. #Anxiety/depression ? Patient's daughter with cerebral palsy unfortunately last year. ? Continue home clonazepam. ? Will consider starting Lexapro after discussion with patient tomorrow. #History of seizures ? Patient reports history of seizures that is being treated with gabapentin. Unclear why this particular medication was chosen. ? Continue gabapentin. Full code DVT prophylaxis: Lovenox 40 mg
[2024-07-06] VITALS (7 sets, daily range): BP systolic 97–114; BP diastolic 64–71; PULSE 62–90; RESP 17–18; TEMP 36.7–37.2; O2SAT 88–95; BMI 20.7
[2024-07-06] MEDS: IPRATROPIUM/ALBUTEROL 3 ML NEB IH ×3 (01:26→09:33)
--- NOTE | 2024-07-06 05:57 | PC.NURSE ---
v/s, ox4. Precautions maintained for RSV+. Pt remained on 3LNC throughout the evening. No acute events to report. Plan of care ongoing.
[2024-07-06] MEDS: BUDESONIDE 0.5MG/2ML NEB 0.5 MG IH (06:39)
[2024-07-06] MEDS: GABAPENTIN 800MG TABLET 800 MG PO (07:36)
--- NOTE | 2024-07-06 07:46 | PC.NURSE ---
At approx. 0736 this patient called at and stated that she wanted to see that nurse. This RN went to patient room and asked how I could assist her. She stated that she wanted to leave the hospital. This nurse asked if something had happened overnight to upset her. She stated that, If nobody is going to do anything for me why am I here. This RN explained to the patient that she has increased oxygen requirement and is getting iv antibiotics and steroids for RSV. Patient stated that no one had told her that she had RSV. This RN asking there were anything that we could do to get patient to stay for further treatment. Daniella refused. made aware that patient wants to leave.
--- NOTE | 2024-07-06 09:21 | PC.NURSE ---
Patients O2 was 92 on room air at 0914
[2024-07-06] MEDS: AZITHROMYCIN 250MG TABLET 250 MG PO (09:55)
[2024-07-06] MEDS: FLUTICASONE PROP 50MCG NASAL SPRAY 16GM 1 SPRAY NS (09:55)
[2024-07-06] MEDS: LORATADINE 10MG TABLET 10 MG PO (09:55)
[2024-07-06] MEDS: predniSONE 20MG TAB 40 MG PO (09:55)
[2024-07-06] MEDS: ENOXAPARIN 40MG/0.4ML SYRINGE 40 MG SUBCUT (09:55)
--- NOTE | 2024-07-06 09:57 | P.PN_ITS ---
Subjective *Date: 07/06/24 *Time: 13:03 Interval history: No acute evens overnight. Admits improving resp symptoms Pulmonology Exam Inpatient Vital signs and Labs for Last 24 Hours: Temp Pulse Resp BP Pulse Ox O2 Del Method O2 Flow Rate 98.1 F 90 17 114/71 88 L Room Air 3 07/06/24 09:20 07/06/24 09:33 07/06/24 09:20 07/06/24 09:20 07/06/24 09:33 07/06/24 09:33 07/06/24 06:22 FiO2 40 07/04/24 09:45 Laboratory Results - last 24 hr 07/05/24 10:42: Specimen Source R radial, O2 % 3lpm, ABG pH 7.37, ABG pCO2 40.1, ABG pO2 57.9 L, ABG HCO3 22.5, ABG Total CO2 23.7, ABG O2 Saturation 91, ABG Base Excess -2.9 L, Tae Test Acceptable 07/05/24 12:52: Chlamy pneumoniae PCR Not detected, Adenovirus (PCR) Not detected, B. pertussis DNA (PCR) Not detected, Coronavirus OC43 (PCR) Not detected, Coronavirus HKU1 (PCR) Not detected, Coronavirus 229E (PCR) Not detected, SARS-CoV-2 (PCR) Not detected, Coronavirus NL63 (PCR) Not detected, Human Metapneumovir PCR Not detected, Influenza A (H1) PCR Not detected, Influ A (H1N1/09) PCR Not detected, Influenza A (H3) PCR Not detected, Influenza Type A (PCR) Not detected, Influenza Type B (PCR) Not detected, M. pneumoniae (PCR) Not detected, Parainfluenza 1 (PCR) Not detected, Parainfluenza 2 (PCR) Not detected, Parainfluenza 3 (PCR) Not detected, Parainfluenza 4 (PCR) Not detected, RSV (PCR) Detected A, Entero/Rhino (PCR) Not detected Temp Pulse Resp BP Pulse Ox O2 Del Method O2 Flow Rate 98.5 F 91 H 18 86/53 L 92 L Nasal Cannula 3 07/05/24 08:00 07/05/24 09:04 07/05/24 08:00 07/05/24 08:00 07/05/24 09:22 07/05/24 09:22 07/05/24 09:22 FiO2 40 07/04/24 09:45 Laboratory Results - last 24 hr 07/04/24 09:39: SARS-CoV-2 (PCR) Not detected, Influenza A Untype (PCR) Not detected, Influenza Type B (PCR) Not detected 07/04/24 09:45: VBG pH 7.17 L, VBG pCO2 61.0 H, VBG pO2 36.3, VBG HCO3 21.8 L, VBG Total CO2 23.6, VBG O2 Saturation 61.8, VBG Base Excess -6.8 L, VBG Lactic Acid 1.9 07/04/24 09:47: WBC 10.0, RBC 5.02, Hgb 15.2, Hct 46.7, MCV 93.0, MCH 30.3, MCHC 32.5, RDW 14.1, Plt Count 159, MPV 10.9 H, Neut % (Auto) 81.3 H, Lymph % (Auto) 11.1, [place] % (Auto) 6.6, Eos % (Auto) 0.2, Baso % (Auto) 0.3, Neut # (Auto) 8.1 H, Lymph # (Auto) 1.1, [place] # (Auto) 0.7, Eos # (Auto) 0.0, Baso # (Auto) 0.0, PT 11.1, INR 0.99, APTT 30.0, D-Dimer 1.11 H, Sodium 140, Potassium 4.9, Chloride 104, Carbon Dioxide 22, Anion Gap 18.9 H, BUN 10, Creatinine 0.90, Estimated Creat Clear 59, Estimated GFR 65, Est GFR ( Amer) 78, Glucose 143 H, Calcium 9.4, Total Bilirubin 0.4, AST 28, ALT 19, Alkaline Phosphatase 94, Troponin I < 0.01, NT-Pro-B Natriuret Pep 775 H, Total Protein 7.9, Albumin 4.2, Globulin 3.7 H, Albumin/Globulin Ratio 1.1, Procalcitonin 0.100, TSH 0.68, Thyroxine (T4) 7.5 07/04/24 13:05: Troponin I < 0.01 07/04/24 15:45: VBG pH 7.24 L, VBG pCO2 43.1, VBG pO2 63.9 H, VBG HCO3 18.1 L, VBG Total CO2 19.5 L, VBG O2 Saturation 91.1 H, VBG Base Excess -9.2 L, VBG Lactic Acid 1.8 07/04/24 16:25: Troponin I < 0.01, Salicylates < 1.0 L, Plasma/Serum Alcohol < 10, Acetone Level None detected 07/04/24 19:15: Urine Color Yellow, Urine Appearance Clear, Urine pH 7.0, Ur Spe cific [place] 1.010, Urine Protein Negative, Urine Glucose (UA) Negative, Urine Ketones Negative, Urine Blood Negative, Urine Nitrate Negative, Urine Bilirubin Negative, Urine Urobilinogen 0.2, Ur Leukocyte Esterase Negative, Urine RBC 3-5, Urine WBC Occasional, Ur Squamous Epith Cells 3-5 07/05/24 05:38: WBC 10.4, RBC 4.23, Hgb 12.6 D, Hct 39.1, MCV 92.4, MCH 29.8, MCHC 32.2, RDW 13.8, Plt Count 136 L, MPV 11.2 H, Neut % (Auto) 86.9 H, Lymph % (Auto) 9.3 L, [place] % (Auto) 3.3, Eos % (Auto) 0.0 L, Baso % (Auto) 0.2, Neut # (Auto) 9.1 H, Lymph # (Auto) 1.0, [place] # (Auto) 0.3, Eos # (Auto) 0.0, Baso # (Auto) 0.0, Sodium 137, Potassium 5.4 H, Chloride 109 H, Carbon Dioxide 18 L, Anion Gap 15.4 H, BUN 10, Creatinine 0.60 D, Estimated Creat Clear 87, Estimated GFR 103, Est GFR ( Amer) 125 D, Glucose 121 H, Calcium 8.4, Magnesium 2.6 H, Total Bilirubin 0.7, AST 39 H D, ALT 24 D, Alkaline Phosphatase 58, Total Protein 7.5, Albumin 3.8, Globulin 3.7 H, Albumin/Globulin Ratio 1.0 L, Triglycerides 63, Cholesterol 100 L, LDL Cholesterol Direct < 30.00 L, VLDL Cholesterol 13, HDL Cholesterol 39 L, Cholesterol/HDL Ratio 2.6 I & O for Labs for Last 24 Hours: Intake & Output 07/03/24 07/04/24 07/05/24 07/06/24 23:59 23:59 23:59 23:59 Intake Total 335 / 335 1920 / 1920 240 / 240 Output Total 1200 / 1200 2000 / 2000 Balance -865 / -865 -80 / -80 240 / 240 Weight 120 lb 117 lb 3.2 oz 117 lb 3.199 oz Intake & Output 07/02/24 07/03/24 07/04/24 07/05/24 23:59 23:59 23:59 23:59 Intake Total 335 / 335 700 / 700 Output Total 1200 / 1200 1700 / 1700 Balance -865 / -865 -1000 / -1000 Weight 120 lb 117 lb 3.2 oz Microbiology Reports for the Last 24 Hours: Microbiology 07/04/24 09:45 Blood Blood Culture - Preliminary NO GROWTH AFTER 48 HOURS 07/04/24 09:45 Blood Blood Culture - Preliminary NO GROWTH AFTER 48 HOURS 07/04/24 17:00 Sputum - Expectorated Sputum Gram Stain - Final 07/04/24 17:00 Sputum - Expectorated Sputum Sputum Culture - Preliminary Microbiology 07/04/24 17:00 Sputum - Expectorated Sputum Gram Stain - Final Constitutional: Present mild distress Head: Present normocephalic and atraumatic ENT: Present normal exam, normal oropharynx and mucous membranes moist Neck: Present normal inspection and full ROM Respiratory: Present prolonged expiratory phase, respiratory distress, rhonchi, diminished air movement and able to speak in complete sentences Cardiac: Present S1/S2, Tachycardia and radial pulses present GI: Present soft and distention; Absent tenderness or guarding Rectal (female): Present deferred (female): Present deferred Skin: Present intact; Absent cyanosis or jaundice Neuro: Present alert, awake and oriented x 3 Extremities: Present normal inspection; Absent edema, clubbing or cyanosis Psychiatric: Present normal affect and cooperative Assessment and Plan *Assessment and plan (1) Acute hypoxemic respiratory failure: Status: Acute Category: Medical Code(s): J96.01 - Acute respiratory failure with hypoxia (2) Acute hypercapnic respiratory failure: Status: Acute Category: Medical Code(s): J96.02 - Acute respiratory failure with hypercapnia (3) Acute exacerbation of chronic obstructive pulmonary disease: Status: Acute Category: Medical Code(s): J44.1 - Chronic obstructive pulmonary disease with (acute) exacerbation (4) Pneumonia: Status: Acute Category: Medical Code(s): J18.9 - Pneumonia, unspecified organism (5) Viral pneumonia: Status: Acute Category: Medical Code(s): J12.9 - Viral pneumonia, unspecified Plan Ms. Meza is a 58-year-old female current smoker greater than [id number] smoking history using albuterol as mentation during the daytime, admits using nocturnal oxygen supplementation at 2 L, prior history of seizure disorder presented to the ER complaining of worsening respiratory distress for the last 2 to 3 days with worsening cough subsequently phlegm along with fevers and pulmonary was called for further evaluation and management. Afebrile. Hemodynamically stable. No evidence of leukocytosis. COVID-19 and flu PCR panel negative. CTA upon admission no evidence of pulmonary embolism. Diffuse centrilobular upper lobe predominant emphysematous changes. No dense consolidation noted. Bronchial thickening. Lymphadenopathy noted predominantly station 5 along with questionable right hilar adenopathy.Venous blood gas upon admission hypercarbic respiratory failure pH is 7.17 pCO2 61.4, improved to 7.24 and 43.1. ABG from this morning on 3l NC pH is 7.36 with a pCO2 40.1 and pO2 of 57.9 On initial examination moderate respiratory distress. Bilateral diffuse wheezing and rhonchi noted. Interval update: Improving respiratory status. Improved wheezing on auscultation. Comprehensive respiratory viral PCR positive for RSV. Continue to receive nebulization therapy steroids antibiotics. Continue to remain afebrile. Plan: Trelegy 100 INH with DuoNebs QID PRN Continue prednisone 40 mg daily x 5 days Continue ceftriaxone and azithromycin pending sputum culture results, Abc can be weaned to cefdinir to complete a total of 5 day course 6 MWT prior to discharge CT scan also concerning for mediastinal lymphadenopathy along with concerns for pulmonary hypertension with dilated PA. Will follow as an outpatient basis in 2-3 weeks
[2024-07-06] MEDS: CEFTRIAXONE 1 GM 1 GM in 0.9 % SODIUM CHLORIDE 50 ML IV (10:07)
[2024-07-06 10:09] LABS: Basophils % 0.2 % (0.1-2.0); Eosinophils % 0.2 % (0.1-12.0); Hematocrit 38.6 % (37.0-47.0); Hemoglobin 12.7 g/dL (12.2-16.2); Lymphocytes % 21.8 % (10-50); Mean Corpuscular HGB Conc 32.9 g/dL (31.8-35.4); Mean Platelet Volume 10.1 fl (7.4-10.4); Monocytes # 0.7 K/mm3 (0.1-1.0); Monocytes % 7.2 % (1.7-9.3); Neutrophils # 6.4 K/mm3 (1.8-7.8); Neutrophils % 70.3 % (37.0-80.0); Platelet Count 159 K/mm3 (142-424); Red Blood Count 4.24 M/mm3 (4.20-5.40); Red Cell Distribution Width 14.1 % (11.5-17.5); White Blood Count 9.1 K/mm3 (4.8-10.8)
[2024-07-06 10:23] LABS: Alanine Aminotransferase 28 U/L (12-78); Albumin Level 3.7 g/dl (3.5-5.0); Albumin/Globulin Ratio 1.1 (1.1-1.8); Alkaline Phosphatase 79 U/L (38-126); Anion Gap 13.3 mEq/L (5-15); Aspartate Amino Transferase 31 U/L (14-36); Bilirubin,Total 0.3 mg/dl (0.2-1.3); Blood Urea Nitrogen 11 mg/dl (7-17); Calcium 9.1 mg/dl (8.4-10.2); Carbon Dioxide 23 mmol/L (22.0-30.0); Chloride 108 mmol/L (98-107); Creatinine Clearance Estimated 74 mL/min (50-200); Estimated Glomerular Filt Rate 86 ml/min (>60); GFR (African American) 104 ML/MIN (>60); Globulin 3.5 g/dL (1.3-3.2); Glucose 86 mg/dl (74-100); Magnesium 2.2 mg/dl (1.6-2.3); Potassium 3.3 mmoL/L (3.5-5.1); Sodium 141 mmol/L (136-145); Total Protein,Serum 7.2 g/dl (6.3-8.2)
--- NOTE | 2024-07-06 11:22 | P.DS_ITS ---
General Admission date:: 07/04/24 HPI HPI HPI: Angela Meza is a 58-year-old female with a medical history significant for COPD on room air, anxiety/depression who presents with progressive shortness of breath at home. Patient states started 3 days ago with increased cough and wheezing, which progressively became worse at which point son drove patient to the hospital. She states she was using albuterol at home without improvement. Denies chest pain, fever/chills, abdominal pain. Workup in the ED significant for VBG pH 7.17 pCO2 61 requiring BiPAP, DuoNebs, Solu-Medrol 125 mg. AGAP 18.6, D-dimer 1.11. CTA chest revealed right upper and lower lobe bronchopneumonia and right-sided hilar adenopathy, pulmonary hypertension. WBC 10.0. Given ceftriaxone, azithromycin. Case discussed with ED provider and decision was made to admit patient for acute hypercapnic respiratory failure secondary to COPD exacerbation. Hospital Course Hospital Course Hospital Course: Angela Meza is a 58-year-old female with a medical history significant for COPD on room air, anxiety/depression who presents with progressive shortness of breath at home. Patient states started 3 days ago with increased cough and wheezing, which progressively became worse at which point son drove patient to the hospital. She states she was using albuterol at home without improvement. Denies chest pain, fever/chills, abdominal pain. Workup in the ED significant for VBG pH 7.17 pCO2 61 requiring BiPAP, DuoNebs, Solu-Medrol 125 mg. AGAP 18.6, D-dimer 1.11. CTA chest revealed right upper and lower lobe bronchopneumonia and right-sided hilar adenopathy, pulmonary hypertension, but no PE. WBC 10.0. Given ceftriaxone, azithromycin. Case discussed with ED provider and decision was made to admit patient for acute hypercapnic respiratory failure secondary to COPD exacerbation. #Acute hypoxic, hypercapnic respiratory failure #COPD exacerbation #RSV infection #Community-acquired pneumonia #Acute metabolic encephalopathy ? Presented with progressive shortness of breath, wheezing, coughing at home. Respiratory panel positive for RSV. ? Initial VBG pH 7.17, pCO2 61, CTA showing right-sided bronchopneumonia. WBC 10.0. No PE. ? Initiated on BiPAP with improvement in mentation, respiratory status and reassuring VBG pCO2. ? Also improved with DuoNebs, Pulmicort, prednisone, ceftriaxone, azithromycin. ? Pulmonology consulted, will continue to follow hilar lymphadenopathy on an outpatient basis. ? Weaned to room air saturating 92%. ? Discharged with Trelegy 100, prednisone, levofloxacin. #Allergic rhinitis ? Continue home Flonase, start cetirizine. #High anion gap metabolic acidosis ? Improved with oral, IV fluid resuscitation and food intake. #Anxiety/depression ? Patient's daughter with cerebral palsy unfortunately last year. ? Continue home clonazepam. ? After discussion with patient, started Lexapro 10 mg daily. Will follow-up with PCP for further evaluation and management. #History of seizures ? Patient reports history of seizures that is being treated with gabapentin. Unclear why this particular medication was chosen. ? Continue gabapentin. Total time spent on discharge: 33 minutes on chart review, counseling, documentation, and direct care with patient. Exam Data for Last 24 hours Vital signs and Labs for Last 24 Hours: Temp Pulse Resp BP Pulse Ox O2 Del Method O2 Flow Rate 98.1 F 90 17 114/71 88 L Room Air 3 07/06/24 09:20 07/06/24 09:33 07/06/24 09:20 07/06/24 09:20 07/06/24 09:33 07/06/24 09:33 07/06/24 06:22 FiO2 40 07/04/24 09:45 Laboratory Results - last 24 hr 07/05/24 12:52: Chlamy pneumoniae PCR Not detected, Adenovirus (PCR) Not detected, B. pertussis DNA (PCR) Not detected, Coronavirus OC43 (PCR) Not detected, Coronavirus HKU1 (PCR) Not detected, Coronavirus 229E (PCR) Not detected, SARS-CoV-2 (PCR) Not detected, Coronavirus NL63 (PCR) Not detected, Human Metapneumovir PCR Not detected, Influenza A (H1) PCR Not detected, Influ A (H1N1/09) PCR Not detected, Influenza A (H3) PCR Not detected, Influenza Type A (PCR) Not detected, Influenza Type B (PCR) Not detected, M. pneumoniae (PCR) Not detected, Parainfluenza 1 (PCR) Not detected, Parainfluenza 2 (PCR) Not detected, Parainfluenza 3 (PCR) Not detected, Parainfluenza 4 (PCR) Not detected, RSV (PCR) Detected A, Entero/Rhino (PCR) Not detected 07/06/24 10:00: WBC 9.1, RBC 4.24, Hgb 12.7, Hct 38.6, MCV 91.0, MCH 30.0, MCHC 32.9, RDW 14.1, Plt Count 159, MPV 10.1, Neut % (Auto) 70.3, Lymph % (Auto) 21.8, Bandera % (Auto) 7.2, Eos % (Auto) 0.2, Baso % (Auto) 0.2, Neut # (Auto) 6.4, Lymph # (Auto) 2.0, Bandera # (Auto) 0.7, Eos # (Auto) 0.0, Baso # (Auto) 0.0, Sodium 141, Potassium 3.3 L D, Chloride 108 H, Carbon Dioxide 23, Anion Gap 13.3, BUN 11, Creatinine 0.70, Estimated Creat Clear 74, Estimated GFR 86, Est GFR ( Amer) 104, Glucose 86, Calcium 9.1, Magnesium 2.2 D, Total Bilirubin 0.3, AST 31, ALT 28, Alkaline Phosphatase 79, Total Protein 7.2, Albumin 3.7, Globulin 3.5 H, Albumin/Globulin Ratio 1.1 I & O for Last 24 hours: Intake & Output 07/03/24 07/04/24 07/05/24 07/06/24 23:59 23:59 23:59 23:59 Intake Total 335 / 335 1920 / 1920 240 / 240 Output Total 1200 / 1200 1999 / 1999 Balance -865 / -865 -80 / -80 240 / 240 Weight 54.431 kg 53.161 kg 53.161 kg Microbiology Reports for the Last 24 Hours: Microbiology 07/04/24 09:45 Blood Blood Culture - Preliminary NO GROWTH AFTER 48 HOURS 07/04/24 09:45 Blood Blood Culture - Preliminary NO GROWTH AFTER 48 HOURS 07/04/24 17:00 Sputum - Expectorated Sputum Gram Stain - Final 07/04/24 17:00 Sputum - Expectorated Sputum Sputum Culture - Preliminary Constitutional Constitutional: no acute distress *Routine HEENT Exam Head: Present normocephalic Eye: Present EOMI and PERRL ENT: Present mucous membranes moist *Routine Neck Exam Neck: Present supple; Absent lymphadenopathy *Routine Respiratory Exam Respiratory: Present wheezes; Absent diminished air movement *Routine Cardiovascular Exam Cardiovascular: Present RRR *Routine Abdominal Exam Abdominal: Present soft and normoactive bowel sounds; Absent tenderness *Routine Extremities Exam Extremities: Absent cyanosis, clubbing or edema *Routine Skin Exam Skin: Present warm; Absent rash *Routine Neurological Exam Neurological: Present alert and oriented X3 Results Data Completed and Pending Labs on day of discharge: Labs from last 24 hours 07/06/24 07/05/24 10:00 12:52 WBC 9.1 RBC 4.24 Hgb 12.7 Hct 38.6 MCV 91.0 MCH 30.0 MCHC 32.9 RDW 14.1 Plt Count 159 MPV 10.1 Neut % (Auto) 70.3 Lymph % (Auto) 21.8 Bandera % (Auto) 7.2 Eos % (Auto) 0.2 Baso % (Auto) 0.2 Neut # (Auto) 6.4 Lymph # (Auto) 2.0 Bandera # (Auto) 0.7 Eos # (Auto) 0.0 Baso # (Auto) 0.0 Sodium 141 Potassium 3.3 L D Chloride 108 H Carbon Dioxide 23 Anion Gap 13.3 BUN 11 Creatinine 0.70 Estimated Creat Clear 74 Estimated GFR 86 Est GFR ( Amer) 104 Glucose 86 Calcium 9.1 Magnesium 2.2 D Total Bilirubin 0.3 AST 31 ALT 28 Alkaline Phosphatase 79 Total Protein 7.2 Albumin 3.7 Globulin 3.5 H Albumin/Globulin Ratio 1.1 Chlamy pneumoniae PCR Not detected Adenovirus (PCR) Not detected B. pertussis DNA (PCR) Not detected Coronavirus OC43 (PCR) Not detected Coronavirus HKU1 (PCR) Not detected Coronavirus 229E (PCR) Not detected SARS-CoV-2 (PCR) Not detected Coronavirus NL63 (PCR) Not detected Human Metapneumovir PCR Not detected Influenza A (H1) PCR Not detected Influ A (H1N1/09) PCR Not detected Influenza A (H3) PCR Not detected Influenza Type A (PCR) Not detected Influenza Type B (PCR) Not detected M. pneumoniae (PCR) Not detected Parainfluenza 1 (PCR) Not detected Parainfluenza 2 (PCR) Not detected Parainfluenza 3 (PCR) Not detected Parainfluenza 4 (PCR) Not detected RSV (PCR) Detected A Entero/Rhino (PCR) Not detected Preliminary micro results at discharge 07/04/24 09:45 Blood Culture - Preliminary Blood NO GROWTH AFTER 48 HOURS 07/04/24 09:45 Blood Culture - Preliminary Blood NO GROWTH AFTER 48 HOURS 07/04/24 17:00 Sputum Culture - Preliminary Sputum - Expectorated Sputum DS: Diagnosis Discharge Diagnosis (1) Acute hypoxemic respiratory failure: Status: Acute Code(s): J96.01 - Acute respiratory failure with hypoxia (2) Acute hypercapnic respiratory failure: Status: Acute Code(s): J96.02 - Acute respiratory failure with hypercapnia (3) Acute exacerbation of chronic obstructive pulmonary disease: Status: Acute Code(s): J44.1 - Chronic obstructive pulmonary disease with (acute) exacerbation (4) Pneumonia: Status: Acute Code(s): J18.9 - Pneumonia, unspecified organism Meds Home Medications and Allergies Home Medications ?Medication ?Instructions ?Recorded ?Confirmed ?Type fluticasone propionate 50 1 spray intranasal DAILY #16 grams 02/15/24 07/04/24 Rx mcg/actuation nasal spray,suspension albuterol sulfate 90 mcg/actuation 2 puff inhalation QIDP PRN 07/04/24 07/04/24 History aerosol inhaler shortness of breath or wheezing clonazepam 1 mg tablet 1 mg PO DAILYP PRN anxiety 07/04/24 07/04/24 History gabapentin 800 mg tablet 800 mg PO QIDP PRN Moderate Pain 07/04/24 07/04/24 History (Scale Score 5-6) escitalopram oxalate 10 mg tablet 10 mg PO DAILY #30 tabs 07/06/24 Rx (Lexapro) fluticasone fur. 100 mcg-umeclid 1 inh inhalation DAILY 30 days #60 07/06/24 Rx 62.5 mcg-vilant 25 mcg ea inhalat.powder (Trelegy Ellipta) levofloxacin 750 mg tablet 750 mg PO DAILY 3 days #3 tabs 07/06/24 Rx prednisone 20 mg tablet 40 mg (2 x 20 mg) PO DAILY 3 days 07/06/24 Rx #6 tabs prochlorperazine maleate 10 mg 10 mg PO TID PRN nausea and 07/11/24 Rx tablet (Compazine) vomiting #60 tabs New Prescriptions to Start Prescriptions: escitalopram oxalate [Lexapro] Bruno Leach [id number] [Trelegy Ellipta] Bruno Leach levofloxacin Bruno Leach prednisone Bruno Leach Allergies Allergy/AdvReac Type Severity Reaction Status Date / Time sumatriptan (From Imitrex) AdvReac Severe Tachycardia Verified 07/04/24 09:54 Discharge Plan Disposition Patient Disposition: Home, Self-Care Condition: Fair Discharge Order Discharge Orders: Discharge Order (Routine); Ordered 07/06/24 Ordered By: Bruno Leach Follow up Plan Follow up with: Chetna Muñiz MD [Physician] - 08/10/24 10:40 am Dannie Miles MD [Primary Care Provider] - 07/16/24 10:20 am Prescriptions/Medication Reconciliation: New prednisone 20 mg Tablet 40 mg PO DAILY 3 Days Qty: 6 0RF Trelegy Ellipta 100-62.5-25 mcg Blister With Device 1 inh inhalation DAILY 30 Days Qty: 60 0RF levofloxacin 750 mg tablet 750 mg PO DAILY 3 Days Qty: 3 0RF escitalopram oxalate [Lexapro] 10 mg tablet 10 mg PO DAILY Qty: 30 0RF Continued fluticasone propionate 50 mcg/actuation spray,suspension 1 spray intranasal DAILY Qty: 16 10RF clonazepam 1 mg tablet 1 mg PO DAILYP PRN (Reason: anxiety) gabapentin 800 mg tablet 800 mg PO QIDP PRN (Reason: Moderate Pain (Scale Score 5-6)) albuterol sulfate 90 mcg/actuation HFA aerosol inhaler 2 puff inhalation QIDP PRN (Reason: shortness of breath or wheezing) Rx Instructions: please provide with spacer and instructions No Action prochlorperazine maleate [Compazine] 10 mg tablet 10 mg PO TID PRN (Reason: nausea and vomiting) Qty: 60 1RF Problem Reconciliation Problems Reviewed?: Yes Patient Discharge Instructions Stand Alone Forms: [facility] Work Release Patient Instructions: DI for Chronic Obstructive Pulmonary Disease, Respiratory Failure Print Language: Green[place]ic Providers Primary Care Provider: Dannie Miles Admit Provider: Bruno Leach Attending Provider: Bruno Leach
--- NOTE | 2024-07-09 12:48 | SW/DCPLANNER ---
Spoke with patient on the phone. Patient stated that she is doing better. Patient stated that she is aware of her upcoming appointments and has them written down on her calender. Patient stated that she was able to get her new medicine picked up. Patient stated that she has no concerns or questions at this time. Zac Mullins
--- OUTSIDE RECORDS SUMMARY | 2024-07-19 17:05 | XMS_ITS | Data Portability ---
Author Organization [facility] Address [address] [place] [id number] Assessment No assessment recorded. Plan of Treatment Reminders Order Date Submit Date Provider Last Modified By Organization Details Last Modified Time Details Appointments 6 MONTH FU 30 2024 01:00P Ashely WASHINGTON NP Not available Not available Not available Lab CBC w/ auto diff 2023 024 [email or web address] [facility] (Registration ), [address], [place], [address], 02/07/2024 08:41:42 CMP, serum or plasma [address] (Registration ), [address], [place], [address], 02/01/2024 08:17:24 [facility] w[facility] [place], [address], 12/14/2023 18:08:37 BMP, serum or plasma 2023 024 [email or web address] [facility] (Registration ), [place], [address], 07/28/2023 08:37:22 CBC w/ auto diff 2023 024 pino [facility] (Registration ), [place], [address], 07/28/2023 08:37:22 protein electroph oresis, monoclona l, serum 2022 023 [email or web address] [facility] ([facility]), [place], [address], 12/16/2022 09:56:54 kappa + lambda light chains, free + ratio, quantitat carlos, serum 2022 023 [email or web address] [facility] ([facility]), [facility] [place], [address], 12/16/2022 09:56:54 immunofix ation + protein electroph oresis + free light chains, serum 2022 023 [email or web address] [facility]), [facility] [place], [address], 12/16/2022 09:56:54 CBC 2022 023 [facility]), [facility] [place], [address], 12/16/2022 09:56:54 viscosity , serum 2022 023 [email or web address] [facility]), [facility] [address], [place], [address], 12/16/2022 09:56:54 Referral None recorded. Procedures None recorded. Surgeries None recorded. Imaging None recorded. Medication Orders None recorded. Patient TargetsNo targets recorded. Patient InstructionsNo instructions recorded. Reason for Referral None Reported. Results Created Date Observation Date Name Description Value Unit Range Abnormal Flag Note LastModifiedBy Organization Detail LastModifiedTime 07/27/19 24 07/27/2023 BASIC METAB OLIC PANEL note SEE NOTE Order ing Provi geovanni: Tricia ledesma APRN Not Available [place] [address] [place], [address], 07/27/2023 21:45:18 07/27/19 24 07/27/2023 BASIC METAB OLIC PANEL sodium 138 mmol/ L 136-14 5 normal Not Available [place] [address], [place], [address], 07/27/2023 21:45:18 07/27/19 24 07/27/2023 BASIC METAB OLIC PANEL potassium 3.7 mmol/ L 3.5-5. 1 normal Not Available [place] [address], [place], [address], 07/27/2023 21:45:18 07/27/19 24 07/27/2023 BASIC METAB OLIC PANEL chloride 101 mmol/ L 98-107 normal Not Available [address]iza Brizuela, [place], [address], 07/27/2023 21:45:18 07/27/19 24 07/27/2023 BASIC METAB OLIC PANEL carbon dioxide 27 mmol/ L 24-33 normal Not Available [place] [address], [place], [address], 07/27/2023 21:45:18 07/27/19 24 07/27/2023 BASIC METAB OLIC PANEL anion gap 13.7 mmol/ L 10-20 normal Not Available [place] [address], [place], [address], 07/27/2023 21:45:18 07/27/19 24 07/27/2023 BASIC METAB OLIC PANEL glucose 88 mg/dL 70-99 normal Not Available [address] [place]iza [place], [place], [address], 07/27/2023 21:45:18 07/27/19 24 07/27/2023 BASIC METAB OLIC PANEL blood urea nitrogen 11 mg/dL 7-18 normal Not Available [place] [address], [place], [address], 07/27/2023 21:45:18 07/27/19 24 07/27/2023 BASIC METAB OLIC PANEL creatinine 0.81 mg/dL 0.55-1 .02 normal Not Available [address] , [place], [address], 07/27/2023 21:45:18 07/27/19 24 07/27/2023 BASIC METAB OLIC PANEL GFR (estimated) 85 mL/mi n >60 normal [IM WILMER NT]: The 2020 CKD-E PI equat ion is now the recom lina d stand alix. This versi on does not inclu de race, as do the 2008 and 2011 CKD-E PI creat inine and creat inine -cyst atin C equat ions. Plekaren e note that the eGFR now repor asael is gener ated by the new 2020 CKD-E PI equat ion, which decre ases the eGFR for black s by up to 10% and incre ases the eGFR for non-b lacks by up to 10% in celia rison to the old equat ion. To celia re a legac y eGFR to a curre nt value , a 2008 CKD-E PI calcu lator is easil y gemma fultonle on the inter net. Calcu lated GFR: This calcu lated GFR is advoc ated by the Natio nal Kidne y Found ation to be used as an indic ator of Chron ic Kidne y Disea se (CKD) . 5 Stage s of Chron ic Kidne y Disea se. Stage 1 90 mL/mi n or more Healt hy kidne ys or Kidne y damag e with ami l or high GFR detai ls Stage 2 60 to 89 mL/mi n Kidne y damag e and mild decre ase in GFR detai ls Stage 3 30 to 59 mL/mi n Moder ate decre ase in GFR detai ls Stage 4 15 to 29 mL/mi n Sever e decre ase in GFR detai ls Stage 5 Less than 15 mL/mi n On dialy sis or Kidne y failu re Patie nt's clini mark statu s must be consi dered for the care of your patie nt. Not Available [address] , [place], [address], 07/27/2023 21:45:18 07/27/19 24 07/27/2023 BASIC METAB OLIC PANEL BUN/creatini ne ratio 13 12-20 normal Not Available [address] , [place], [address], 07/27/2023 21:45:18 07/27/19 24 07/27/2023 BASIC METAB OLIC PANEL calcium 8.6 mg/dL 8.5-10 .1 normal Not Available [address] , [place], [address], 07/27/2023 21:45:18 07/27/19 24 07/27/2023 BASIC METAB OLIC PANEL osmolality serum calculated 273 mOsm/ kg 272-28 8 normal Not Available [address] , [place], [address], 07/27/2023 21:45:18 07/27/19 24 07/27/2023 BASIC METAB OLIC PANEL performing lab SEE NOTE - [address] [facility] [address] Not Available [address] , [place], [address], 07/27/2023 21:45:18 07/27/19 24 07/27/2023 CBC W/AUT O DIFFE RENTI AL note SEE NOTE Order ing Provi geovanni: Tricia ledesma DATA REPORT ANALYST Not Available [address] , [place], [address], 07/27/2023 21:49:24 07/27/19 24 07/27/2023 CBC W/AUT O DIFFE RENTI AL white blood cell 7.7 10e3/ uL 4.5-13 .0 normal Not Available [address] , [place], [address], 07/27/2023 21:49:24 07/27/19 24 07/27/2023 CBC W/AUT O DIFFE RENTI AL red blood cell 4.84 10e6/ uL 3.80-5 .10 normal Not Available [address] [place], [place], [address], 07/27/2023 21:49:24 07/27/19 24 07/27/2023 CBC W/AUT O DIFFE RENTI AL hemoglobin 14.6 g/dL 11.5-1 5.3 normal Not Available [address] [place], [place], [address], 07/27/2023 21:49:24 07/27/19 24 07/27/2023 CBC W/AUT O DIFFE RENTI AL hematocrit 44.4 % 34.0-4 6.0 normal Not Available [address] [place], [place], [address], 07/27/2023 21:49:24 07/27/19 24 07/27/2023 CBC W/AUT O DIFFE RENTI AL mean cell volume 92 fL 78.0-9 8.0 normal Not Available [address] [place], [place], [address], 07/27/2023 21:49:24 07/27/19 24 07/27/2023 CBC W/AUT O DIFFE RENTI AL mean cell HGB 30.2 pg 25.0-3 5.0 normal Not Available [address] [place], [place], [address], 07/27/2023 21:49:24 07/27/19 24 07/27/2023 CBC W/AUT O DIFFE RENTI AL mean cell HGB concentratio n 32.9 g/dL 31.0-3 6.0 normal Not Available [address] [place], [place], [address], 07/27/2023 21:49:24 07/27/19 24 07/27/2023 CBC W/AUT O DIFFE RENTI AL red cell distribution width 14.4 % 11.0-1 5.0 normal Not Available [address] , [place], [address], 07/27/2023 21:49:24 07/27/19 24 07/27/2023 CBC W/AUT O DIFFE RENTI AL platelet count 198 10e3/ uL 150-40 0 normal Not Available [address] , [place], [address], 07/27/2023 21:49:24 07/27/19 24 07/27/2023 CBC W/AUT O DIFFE RENTI AL immature granulocyte % 0 0-1 normal Not Available [address] , [place], [address], 07/27/2023 21:49:24 07/27/19 24 07/27/2023 CBC W/AUT O DIFFE RENTI AL neutrophil % 64 % 35-75 normal Not Available [address] , [place], [address], 07/27/2023 21:49:24 07/27/19 24 07/27/2023 CBC W/AUT O DIFFE RENTI AL lymphocyte % 29 % 10-50 normal Not Available [address] , [place], [address], 07/27/2023 21:49:24 07/27/19 24 07/27/2023 CBC W/AUT O DIFFE RENTI AL monocyte % 5 % 0-15 normal Not Available [address] , [place], [address], 07/27/2023 21:49:24 07/27/19 24 07/27/2023 CBC W/AUT O DIFFE RENTI AL eosinophil % 1 % 0-5 normal Not Available [address] , [place], [address], 07/27/2023 21:49:24 07/27/19 24 07/27/2023 CBC W/AUT O DIFFE RENTI AL basophil % 1 % 0-5 normal Not Available [address] [place], [place], [address], 07/27/2023 21:49:24 07/27/19 24 07/27/2023 CBC W/AUT O DIFFE RENTI AL immature granulocyte # 0.02 x1000 /uL 0-0.05 normal Not Available [address] , [place], [address], 07/27/2023 21:49:24 07/27/19 24 07/27/2023 CBC W/AUT O DIFFE RENTI AL neutrophil # 4.90 x1000 /uL 1.50-8 .00 normal Not Available [address] [place], [place], [address], 07/27/2023 21:49:24 07/27/19 24 07/27/2023 CBC W/AUT O DIFFE RENTI AL lymphocyte # 2.25 x1000 /uL 1.20-5 .20 normal Not Available [address] [place], [place], [address], 07/27/2023 21:49:24 07/27/19 24 07/27/2023 CBC W/AUT O DIFFE RENTI AL monocyte # 0.39 x1000 /uL 0.40-0 .90 low Not Available [address] [place], [place], [address], 07/27/2023 21:49:24 07/27/19 24 07/27/2023 CBC W/AUT O DIFFE RENTI AL eosinophil # 0.10 x1000 /uL 0.00-0 .50 normal Not Available [address] [place], [place], [address], 07/27/2023 21:49:24 07/27/19 24 07/27/2023 CBC W/AUT O DIFFE RENTI AL basophil # 0.04 x1000 /uL 0.00-0 .30 normal Not Available [address] [place], [place], [address], 07/27/2023 21:49:24 07/27/19 24 07/27/2023 CBC W/AUT O DIFFE RENTI AL NRBC automated 0.0 /100_ WBC Not Available [address] , [place], [address], 07/27/2023 21:49:24 07/27/19 24 07/27/2023 CBC W/AUT O DIFFE RENTI AL performing lab SEE NOTE - [facility] [address] [facility] [address] Not Available [address] [place], [place], [address], 07/27/2023 21:49:24 12/14/19 24 12/14/2023 CBC W/AUT O DIFFE RENTI AL note SEE NOTE Order ing Provi geovanni: Tricia ledesma APRN Not Available [address] [place], [place], [address], 12/14/2023 18:08:37 12/14/19 24 12/14/2023 CBC W/AUT O DIFFE RENTI AL white blood cell 6.5 10e3/ uL 4.5-13 .0 normal Not Available [address] [place], [place], [address], 12/14/2023 18:08:37 12/14/19 24 12/14/2023 CBC W/AUT O DIFFE RENTI AL red blood cell 4.32 10e6/ uL 3.80-5 .10 normal Not Available [place] [address], [place], [address], 12/14/2023 18:08:37 12/14/19 24 12/14/2023 CBC W/AUT O DIFFE RENTI AL hemoglobin 13.4 g/dL 11.5-1 5.3 normal Not Available [place] [address], [place], [address], 12/14/2023 18:08:37 12/14/1912/14/2023 CBC W/AUT O DIFFE RENTI AL hematocrit 39.5 % 34.0-4 6.0 normal Not Available [place] [address], [place], [address], 12/14/2023 18:08:37 12/14/19 24 12/14/2023 CBC W/AUT O DIFFE RENTI AL mean cell volume 91 fL 78.0-9 8.0 normal Not Available [place] [address], [place], [address], 12/14/2023 18:08:37 12/14/19 24 12/14/2023 CBC W/AUT O DIFFE RENTI AL mean cell HGB 31.0 pg 25.0-3 5.0 normal Not Available [place] [address], [place], [address], 12/14/2023 18:08:37 12/14/1912/14/2023 CBC W/AUT O DIFFE RENTI AL mean cell HGB concentratio n 33.9 g/dL 31.0-3 6.0 normal Not Available [place] [address], [place], [address], 12/14/2023 18:08:37 12/14/19 24 12/14/2023 CBC W/AUT O DIFFE RENTI AL red cell distribution width 14.1 % 11.0-1 5.0 normal Not Available [address] [place], [place], [address], 12/14/2023 18:08:37 12/14/19 24 12/14/2023 CBC W/AUT O DIFFE RENTI AL platelet count 190 10e3/ uL 150-40 0 normal Not Available [address] [place], [place], [address], 12/14/2023 18:08:37 12/14/19 24 12/14/2023 CBC W/AUT O DIFFE RENTI AL immature granulocyte % 0 0-1 normal Not Available [address] [place], [place], [address], 12/14/2023 18:08:37 12/14/19 24 12/14/2023 CBC W/AUT O DIFFE RENTI AL neutrophil % 58 % 35-75 normal Not Available [address] [place], [place], [address], 12/14/2023 18:08:37 12/14/19 24 12/14/2023 CBC W/AUT O DIFFE RENTI AL lymphocyte % 33 % 10-50 normal Not Available [place] [address], [place], [address], 12/14/2023 18:08:37 12/14/19 24 12/14/2023 CBC W/AUT O DIFFE RENTI AL monocyte % 8 % 0-15 normal Not Available [address] [place], [place], [address], 12/14/2023 18:08:37 12/14/19 24 12/14/2023 CBC W/AUT O DIFFE RENTI AL eosinophil % 1 % 0-5 normal Not Available [address] [place], [place], [address], 12/14/2023 18:08:37 12/14/19 24 12/14/2023 CBC W/AUT O DIFFE RENTI AL basophil % 1 % 0-5 normal Not Available [place] [address], [place], [address], 12/14/2023 18:08:37 12/14/19 24 12/14/2023 CBC W/AUT O DIFFE RENTI AL immature granulocyte # 0.00 x1000 /uL 0-0.05 normal Not Available [place] [address], [place], [address], 12/14/2023 18:08:37 12/14/19 24 12/14/2023 CBC W/AUT O DIFFE RENTI AL neutrophil # 3.76 x1000 /uL 1.50-8 .00 normal Not Available [place] [address], [place], [address], 12/14/2023 18:08:37 12/14/19 24 12/14/2023 CBC W/AUT O DIFFE RENTI AL lymphocyte # 2.16 x1000 /uL 1.20-5 .20 normal Not Available [place] [address], [place], [address], 12/14/2023 18:08:37 12/14/19 24 12/14/2023 CBC W/AUT O DIFFE RENTI AL monocyte # 0.49 x1000 /uL 0.40-0 .90 normal Not Available [place] [address], [place], [address], 12/14/2023 18:08:37 12/14/19 24 12/14/2023 CBC W/AUT O DIFFE RENTI AL eosinophil # 0.09 x1000 /uL 0.00-0 .50 normal Not Available [place] [address], [place], [address], 12/14/2023 18:08:37 12/14/19 24 12/14/2023 CBC W/AUT O KAI ISRAEL basophil # 0.04 x1000 /uL 0.00-0 .30 normal Not Available [address] , [place], [address], 12/14/2023 18:08:37 12/14/19 24 12/14/2023 CBC W/AUT O KAI ISRAEL NRBC automated 0.0 /100_ WBC Not Available [address] , [place], [address], 12/14/2023 18:08:37 12/14/19 24 12/14/2023 CBC W/AUT O KAI ISRAEL performing lab SEE NOTE - [facility] [address] [place] [address] [address] [facility] [address] Not Available [address] , [place], [address], 12/14/2023 18:08:37 12/03/19 23 10/27/2022 LDCT, chest , for lung ronnice r casie meyers No observ ation record ed. [email or web address] [facility] [address] [facility], [place], [address], 01/17/2023 10:28:29 Result Notes None recorded. Problems Name Problem SNOMED Code Status Onset Date Resolution Date Notes Provider Name and Address Organization Details Recorded Time Pulmonary emphysema 25936903 Active 2021 Edmar Gallagher MD [address] [place] [address],[address] Formerly named [facility], [place], [address] , [facility] & [place] 2 01:38:44 Chronic obstructiv e pulmonary disease 14306370 Active 2021 Edmar Gallagher MD [address] [place] [address],[address], [place], [address] , [facility] & [place] 2 01:38:48 Mild intermitte nt asthma 339552853 Active 2021 Edmar Gallagher MD [address] [place] [address],[address], [place], [address] , [facility] & [place] 2 01:38:54 Tobacco dependence syndrome 16675387 Active 2021 Edmar Gallagher MD [address] [place] [address],[address], [place], [address] , [facility] & [place] 2 01:38:58 Sebaceous cyst of skin 021803093 Active 2020 Not Available [facility] 2 23:33:06 Tobacco user 129883417 Active 2020 Not Available [facility] 2 23:33:06 Patient care statuses 535372485 Active 2013 Not Available [facility] 2 23:33:06 Rheumatoid factor detected 363665270 Active 2021 Not Available [facility] 2 23:33:06 Protein level - finding 277330943 Active 2020 Not Available [facility] 2 23:33:06 Lateral epicondyli tis 376481374 Active 2013 Not Available [facility] 2 23:33:06 Open wound of neck 417134663 Active 2020 Not Available [facility] 2 23:33:06 Pain in right hip joint 7695384782587 02 Active 2015 Not Available [facility] 2 23:33:06 Cervical radiculiti s 71171577 Active 2013 Not Available [facility] 2 23:33:06 Closed fracture of neck of femur 155156818 Active 2015 Not Available [facility] 2 23:33:06 Pain in elbow 86581489 Active 2013 Not Available [facility] 2 23:33:07 Surgical follow-up 356141276 Active 2020 Not Available [facility] 2 23:33:07 Finding of protein in serum or plasma 316578401 Active 2020 Not Available [facility] 2 23:33:07 Temporoman dibular joint disorder 38955149 Active 2020 Not Available [facility] 2 23:33:07 Bicarbonat e level - finding 377220775 Active 2020 Not Available [facility] 2 23:33:07 Metabolic acidosis, increased anion gap (IAG) 47530987 Active 2020 Not Available [facility] 2 23:33:07 Referred otalgia of right ear 2679597171169 100 Active 2020 Not Available [facility] 2 23:33:07 Secondary polycythem ia 42478279 Active 2020 Not Available [facility] 2 23:33:07 Anti-nucle ar factor detected 326431825 Active 2021 Not Available [facility] 2 23:33:07 Free immunoglob ulin light chain above reference range 24008459632 Active 2023 YAZAN WASHINGTON NP [address] [place] [address], [address] , [facility] & [place] 4 12:38:04 Continuous dependence on cigarette smoking 2041396740779 08 Active 2023 YAZAN WASHINGTON NP [address] [place] [address], [address] , [facility] & [place] 4 12:46:39 Problem Notes None recorded. Procedures Surgical History Date Name Laterality Status Provider Name and Address Organization Details Recorded Time hysterectomy completed Vivi DAWSON - LPNT [facility] & [place] 12/25/2021 09:34:08 Appendectomy completed Vivi DAWSON - LPNT [facility] & [place] 12/25/2021 09:34:17 cholecystostomy completed Vivi DAWSON - LPNT [facility] & [place] 12/25/2021 09:34:30 Imaging Results Imaging Date Name Status LastModified by Organiz ation Details LastModified Time 10/27/2022 LDCT, chest, for lung cancer screening completed [email or web address] [address], [place], [address], 01/17/2023 10:28:29 Procedure Notes None recorded. Medical Equipment None Reported. Allergies No known drug allergies Medications Name Sig Start Date Stop Date Status Note LastModified by Organization Details LastModified Time cyclobenzap rine 10 mg tablet TAKE ONE (1) TABLET ORAL ROUTE EVERY 8 HOURS NEEDED 07/24 completed Not Available Not Available Not Available trazodone 50 mg tablet ONE HALF (1/2) TO ONE (1) TABS BY MOUTH EVERY AT BEDTIME NEEDED 12/27 completed Not Available Not Available Not Available azithromyci n 250 mg tablet TAKE 2 TABLETS TODAY, THEN TAKE 1 TABLET EVERY DAY FOR 4 DAYS 12/27 completed Not Available Not Available Not Available ibuprofen 800 mg tablet TAKE ONE (1) TABLET BY MOUTH EVERY 6-8 HOURS active Not Available Not Available No t Available citalopram 10 mg tablet TAKE 1 TABLET BY MOUTH EVERY DAY 12/27 completed Not Available Not Available Not Available ondansetron HCl 8 mg tablet TAKE ONE (1) TABLET TWICE A DAY BY ORAL ROUTE FOR 30 DAYS. 12/27 completed Not Available Not Available Not Available ondansetron HCl 4 mg tablet TAKE 1 TABLET BY MOUTH EVERY DAY THREE (3) TIMES DAILY active Not Available Not Available No t Available clonazepam 1 mg tablet TAKE 1 TABLET BY MOUTH ONCE DAILY NEEDED FOR ANXIETY active Not Available Not Available No t Available penicillin V potassium 500 mg tablet TAKE ONE (1) TABLET BY MOUTH FOUR TIMES A DAY; TAKE UNTIL ENTIRE RX IS FINISHED. 01/24 completed Not Available Not Available Not Available triamcinolo ne acetonide 0.1 % topical cream APPLY A THIN LAYER TO THE AFFECTED AREA(S) BY TOPICAL ROUTE TWO (2) TIMES PER DAY active Not Available Not Available No t Available citalopram 20 mg tablet TAKE ONE (1) TABLET EVERY DAY BY ORAL ROUTE FOR 30 DAYS. 12/27 completed Not Available Not Available Not Available gabapentin 800 mg tablet TAKE 1 TABLET BY MOUTH FOUR (4) TIMES DAILY NEEDED FOR PAIN active Not Available Not Available No t Available cephalexin 500 mg capsule TAKE ONE (1) CAPSULE THREE (3) TIMES A DAY BY ORAL ROUTE FOR 10 DAYS. 12/27 completed Not Available Not Available Not Available ergocalcife rol (vitamin D2) 1,250 mcg (50,000 unit) capsule 1 {capsule} by oral route. 12/27 completed Not Available Not Available Not Available methylpredn isolone 4 mg tablets in a dose pack TAKE DIRECTED FOR 6 DAYS 12/27 completed Not Available Not Available Not Available cefdinir 300 mg capsule TAKE 1 CAPSULE BY MOUTH TWICE DAILY 07/24 completed Not Available Not Available Not Available fluticasone propionate 50 mcg/actuati on nasal spray,suspe nsion INSTILL ONE (1) SPRAY INOSTIL(S ) EVERY DAY active Not Available Not Available No t Available Ventolin HFA 90 mcg/actuati on aerosol inhaler INHALE TWO (2) PUFFS FOUR (4) TIMES DAILY NEEDED FOR SHORTNESS OF BREATH OR WHEEZING active Not Available Not Available No t Available buprenorphi ne 8 mg-naloxone 2 mg sublingual tablet DISSOLVE 2 TABLETS UNDER THE TONGUE ONCE DAILY active Not Available Not Available No t Available cyclobenzap rine 5 mg tablet Take 1 tablet 3 times a day by oral route as directed. 12/27 completed Not Available Not Available Not Available Vitals Date Recorded Body height Body mass index (BMI) Body weight Body temperature Heart rate Respiratory rate Oxygen saturation Oxygen saturation in Arterial blood by Pulse oximetry Systolic blood pressure Diastolic blood pressure Provider Name and Address Organization Details Last Updated DateTime 3 160.02 cm 22.5 kg/m2 45472.9 5 g 98.4 [degF] 65 /min 16 /min 94 % 94 % 129 mm[Hg] 71 mm[Hg] Francy Dos Santos [place] - LPNT [facility] 3 14:09:07 Date Recorded Body height Body mass index (BMI) Body weight Body temperature Oxygen saturation Oxygen saturation in Arterial blood by Pulse oximetry Heart rate Respiratory rate Systolic blood pressure Diastolic blood pressure Provider Name and Address Organization Details Last Updated DateTime 3 160.02 cm 22 kg/m2 30418.1 7 g 96.9 [degF] 97 % 97 % 60 /min 16 /min 122 mm[Hg] 71 mm[Hg] [facility]os [facility] [place] 3 14:31:55 Date Recorded Body height Body mass index (BMI) Body weight Body temperature Oxygen saturation Oxygen saturation in Arterial blood by Pulse oximetry Heart rate Respiratory rate Systolic blood pressure Diastolic blood pressure Provider Name and Address Organization Details Last Updated DateTime 4 160.02 cm 21.2 kg/m2 07581.9 3 g 98.5 [degF] 91 % 91 % 78 /min 16 /min 98 mm[Hg] 68 mm[Hg] Carol Brownmons [facility] & [place] 4 14:15:56 Date Recorded Body height Provider Name an d Address Organization Details Last Updated DateTime 12/14/2023 160.02 cm Iris Marrero [facility] LP[facility] & [place] 12/14/2023 14:09:54 Date Recorded Body height Body mass index (BMI) Body weight Body temperature Oxygen saturation Oxygen saturation in Arterial blood by Pulse oximetry Heart rate Respiratory rate Systolic blood pressure Diastolic blood pressure Provider Name and Address Organization Details Last Updated DateTime 4 160.02 cm 19.7 kg/m2 94315.7 5 g 97.2 [degF] 92 % 92 % 79.99 /min 16 /min 124 mm[Hg] 82 mm[Hg] Angela Dos Santos [facility] [place] [facility] [place] 4 13:04:22 Social History Question Answer Notes LastModified by Organizat ion Details LastModified Time Tobacco Smoking Status Current Every Day Smoker Not Available [facility]16/[facility]21 23:33:15 What Was The Date Of Your Most Recent Tobacco Screening? 12/27/2022 [email or web address] Information not available 12/30/2022 Sex: Unknown Functional Status None recorded. Mental Status None recorded. Family History Relationship Description Onset Age of this Age Resolved Age Notes LastModified by Organization Details LastModified Time Mother Family history of malignant neoplasm ovary [email or web address] Not available 2021 09:33:36 Medical History Condition Response Seizures/Epilepsy Y COPD Y Gynecological History Statement/Question Response Menses Monthly N Abnormal Pap N Sexually Active? N Obstetrics History GPAL:G 0 P 0 0 0 0 Past Encounters Encounter ID Performer Location Encounter Start Date Encounter Closed Date Diagnosis/Indication Diagnosis SNOMED-CT Code Diagnosis ICD10 Code Diagnosis Note [id number] MD ROSELIA [facility] [address] [place] [address] [place] [address] 12/02/2022 13:41:58 12/02/2022 14:41:02 Secondary polycythemia 71048828 D75.1 Patient has history of secondary polycythem ia. Most recent CBC from September 10, 2022 showed normal hemoglobin / hematocrit . I am repeating CBC. Also will be repeating serum viscosity. I will see the patient back in 4 weeks. Patient will be referred to podiatry for evaluation . Free immun oglobulin light chain above reference range 7020554611 4 R89.4 Patient noted to have elevated gamma globulins. Serum protein electropho resis revealed no M spike. She has elevated free kappa and lambda light chains with normal ratio. This is most likely reactive. I am repeating serum protein electropho resis, immunofixa tion with free light chains. Rheumatoid factor detected 519697109 R76.0 patient has positive rheumatoid factor with LEIDY. patient will need referral to Rheumatolo gy Continuous dependence on cigarette smoking [id number] 36104 F17.210 encouraged the patient to quit smoking [id number] MD ROSELIA [facility] [address] [place] [address] [place] [address] 12/30/2022 14:17:12 12/30/2022 14:59:45 Secondary polycythemia [id number] D75.1 Patient has history of secondary polycythem ia. Her most recent CBC from December 02, 2022 was completely normal. Serum viscosity was also normal. patient does not need phlebotomy at this point. For the sensitivit y of the right small toe, patient does not feel the need to see podiatry at this point. We will continue to monitor. Patient is to stay on aspirin. . Free immun oglobulin light chain above reference range 9668345209 4 R89.4 Patient has elevated free light chains both kappa and lambda however the ratio is normal. This is a reactive phenomenon . She also has elevated IgG with normal IgA and IgM. This does not represent plasma cell dyscrasia but rather it is reactive phenomenon due to positive LEIDY. Patient needs referral to Rheumatolo for evaluation . Rheumatoid factor detected 914171432 R76.0 patient has positive rheumatoid factor with LEIDY. patient will need referral to Rheumatolo Continuous dependence on cigarette smoking [id number] 88299 F17.210 encouraged the patient to quit smoking . I will see the patient back in 6 months. [id number] [facility] [address] [place] [address] [place]es [address] 07/27/2023 13:47:16 07/27/2023 14:44:38 Secondary polycythemia [id number] D75.1 Patient presents July 27, 2023 for follow-up regarding secondary erythrocyt osis. Patient with history of secondary polycythem ia. Phlebotomy has not been performed. Laboratory evaluation today. Laboratory evaluation performed in the office. Labs pending at this time. Recommend repeat labs in 3 months. Recommend continued surveillan ce at this time. Patient to return to clinic in 6 months. Should you have any further questions or concerns, please feel free to give me a call at . I personally spent 25 minutes in patient care on this date reviewing records, obtaining interim history, performing a physical exam, counseling the patient, ordering and reviewing today's labs, and documentin g informatio n in the electronic health record. Rheumatoid factor detected [id number] R76.0 Patient has positive rheumatoid factor with LEIDY. Recommend patient see Rheumatolo . Referral sent. Patient unsure if she wants to proceed with referral or not. Continuous dependence on cigarette smoking [id number] 31639 F17.210 Patient educated regarding smoking cessation. Free immun oglobulin light chain above reference range 4674332175 4 R89.4 Patient has elevated free light chains both kappa and lambda however the ratio is normal. This is a reactive phenomenon . She also has elevated IgG with normal IgA and IgM. This does not represent plasma cell dyscrasia but rather it is reactive phenomenon due to positive LEIDY. Patient needs referral to Rheumatolo for evaluation . [id number] VI[facility] [address] [place] [address] [place] Est[place] [address] 12/14/2023 13:48:15 12/14/2023 14:09:43 Secondary polycythemia [id number] D75.1 [id number] VI[facility]INO [facility] [address] [place] [address] E[place] Estes [address] 01/25/2024 12:36:25 01/25/2024 13:35:11 Secondary polycythemia [id number] D75.1 Patient presents January 25, 2024 for follow-up regarding secondary erythrocyt osis. Patient with history of secondary polycythem ia. Phlebotomy has not been performed. Laboratory evaluation today. Laboratory evaluation performed in the office. Labs pending at this time. Recommend continued surveillan ce at this time. Patient to return to clinic in 6 months. Should you have any further questions or concerns, please feel free to give me a call at . I personally spent 25 minutes in patient care on this date reviewing records, obtaining interim history, performing a physical exam, counseling the patient, ordering and reviewing today's labs, and documentin g informatio n in the electronic health record. Rheumatoid factor detected [id number] R76.0 Patient has positive rheumatoid factor with LEIDY. Recommend patient see Rheumatolo gy. Referral sent. Patient unsure if she wants to proceed with referral or not. Continuous dependence on cigarette smoking [id number] 73623 F17.210 Patient educated regarding smoking cessation. Free immun oglobulin light chain above reference range 1034195408 4 R89.4 Patient has elevated free light chains both kappa and lambda however the ratio is normal. This is a reactive phenomenon . She also has elevated IgG with normal IgA and IgM. This does not represent plasma cell dyscrasia but rather it is reactive phenomenon due to positive LEIDY. Patient needs referral to Rheumatolo gy for evaluation . Patient declines at this time. Health Concerns Section Related Observation LastModified by Organization Detai ls LastModified Time None Recorded Concern Status LastModified by Organization Details LastModified Time None Recorded Advance Directives Directive None Recorded Payers Encounter Date Sequence Insurance Name Policy Number Policy Min Covered Member ID Min Member ID Guarantor Name 12/02/2022 1 [place] [id number] July Derrick [id number] July Derrick 12/30/2022 1 [id number] July Derrick [id number] July Derrick 07/27/2023 1 [id number] July Derrick [id number] July Derrick 12/14/2023 1 [id number] July Derrick [id number] July Derrick 01/25/2024 1 [id number] July Derrick [id number] July Derrick Notes Date Note Type Note Provider Name and Address Organization Details Recorded Time 12/02/2022 text/html Mrs. Angela ledesma is very pleasant 57-year-old lady who returns for follow-up visit. Patient has been under the care of Dr. Dannie Cueto for secondary erythrocytosis, abnormality of plasma proteins, elevated rheumatoid factor and positive LEIDY. 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 She has long history of smoking and has smoked at least 1 pack per day for 40 years. Patient denies any snoring, gasping for air at night or history of obstructive sleep apnea. She does report frequent headaches, she has diffuse joint pain and occasional bone pain in the right femur. She denies any abdominal pain or fullness. She denies any weight loss, fever or chills. She denies any hematuria or dysuria. CBC from February 03, 2021 showed hemoglobin of 17, hematocrit 51.7, otherwise normal WBC and platelet. CMP showed an elevation in total protein to 8.7 with normal albumin of 4.8. Creatinine and LFTs were normal. Serology for hepatitis and HIV were negative. Serum erythropoietin level, JAK2 mutation, MPL and CLAR [place] mutation all were negative. CT scan of the chest showed evidence of emphysema. Patient was felt to have secondary polycythemia. Serum protein electrophoresis was negative for a monoclonal protein free light chains showed elevations in both kappa and lambda chain with a normal ratio. These changes were felt to most likely be related to underlying inflammation. Rheumatoid factor and LEIDY were strongly positive. Patient was referred to radio communications superintendent but she states that she has yet to hear anything about scheduling an appointment.- from September 14, 2021 WBC count 4.9, hemoglobin 16.0, hematocrit 48.1, platelet count 187. Globulin 4.5, creatinine 0.8- on December 02, 2022 patient returned to the office for follow-up visit. She reports that the right little toe has been very sensitive and swelled. She was seen by her primary care physician and had an x-ray to the food and was negative. Patient continues to smoke about 1 pack per day. She has never had phlebotomy in the past. She is on aspirin 81 mg daily. She has never had sleep study. She does not take any diuretics. CT scan of the chest from October 27, 2022 showed 1.8 cm right major fissure calcified granuloma with advanced emphysema. Hemoglobin A1c 5.8, creatinine 0.7, calcium 8.6, protein 7.2, albumin 3.8, globulin 3.4, WBC 6.2, hemoglobin 13.7, hematocrit 41.1, platelet count 217. Santos Patel MD [address] [place] [address],[address], [place], [address], [facility] [place] [facility] [place] [facility] [place] 12/31/2022 17:57:42 12/30/2022 text/html Mrs. Angela ledesma is very pleasant 57-year-old lady who returns for follow-up visit. Patient has been under the care of Dr. Dannie Cueto for secondary erythrocytosis, abnormality of plasma proteins, elevated rheumatoid factor and positive LEIDY. 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 She has long history of smoking and has smoked at least 1 pack per day for 40 years. Patient denies any snoring, gasping for air at night or history of obstructive sleep apnea. She does report frequent headaches, she has diffuse joint pain and occasional bone pain in the right femur. She denies any abdominal pain or fullness. She denies any weight loss, fever or chills. She denies any hematuria or dysuria. CBC from February 03, 2021 showed hemoglobin of 17, hematocrit 51.7, otherwise normal WBC and platelet. CMP showed an elevation in total protein to 8.7 with normal albumin of 4.8. Creatinine and LFTs were normal. Serology for hepatitis and HIV were negative. Serum erythropoietin level, JAK2 mutation, MPL and CLAR [place] mutation all were negative. CT scan of the chest showed evidence of emphysema. Patient was felt to have secondary polycythemia. Serum protein electrophoresis was negative for a monoclonal protein free light chains showed elevations in both kappa and lambda chain with a normal ratio. These changes were felt to most likely be related to underlying inflammation. Rheumatoid factor and LEIDY were strongly positive. Patient was referred to radio communications superintendent but she states that she has yet to hear anything about scheduling an appointment.- from September 14, 2021 WBC count 4.9, hemoglobin 16.0, hematocrit 48.1, platelet count 187. Globulin 4.5, creatinine 0.8- on December 02, 2022 patient returned to the office for follow-up visit. She reports that the right little toe has been very sensitive and swelled. She was seen by her primary care physician and had an x-ray to the food and was negative. Patient continues to smoke about 1 pack per day. She has never had phlebotomy in the past. She is on aspirin 81 mg daily. She has never had sleep study. She does not take any diuretics. CT scan of the chest from October 27, 2022 showed 1.8 cm right major fissure calcified granuloma with advanced emphysema. Hemoglobin A1c 5.8, creatinine 0.7, calcium 8.6, protein 7.2, albumin 3.8, globulin 3.4, WBC 6.2, hemoglobin 13.7, hematocrit 41.1, platelet count 217.- On December 30, 2022, patient returned for follow-up visit. She continues to have chronic shortness of breath, she denies any hemoptysis. On prior visit, she was complaining of pain and swelling in the right little toe. Patient has not been seen by podiatry. She feels much better right now and the right little toe is back to normal. Patient had a battery of blood work and she comes in today to discuss the results.- From December 02, 2022 : WBC 7.2, hemoglobin 14.5, hematocrit 44.5, platelet count 190. serum protein electrophoresis revealed no M spike. Serum free kappa light chain was elevated at 53, free lambda light chain elevated at 37, kappa/ lambda ratio 1.42. Serum viscosity 1.8, IgG level elevated at 2162, IgA and IgM were otherwise normal level. Santos Patel MD [address] [place] [address],[address], [place], [address], [place] [facility] 12/31/2022 18:05:40 07/27/2023 text/html Mrs. Angela ledesma is very pleasant 57-year-old lady who returns for follow-up visit. Patient has been under the care of Dr. Dannie Cueto for secondary erythrocytosis, abnormality of plasma proteins, elevated rheumatoid factor and positive LEIDY. 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 She has long history of smoking and has smoked at least 1 pack per day for 40 years. Patient denies any snoring, gasping for air at night or history of obstructive sleep apnea. She does report frequent headaches, she has diffuse joint pain and occasional bone pain in the right femur. She denies any abdominal pain or fullness. She denies any weight loss, fever or chills. She denies any hematuria or dysuria. CBC from February 03, 2021 showed hemoglobin of 17, hematocrit 51.7, otherwise normal WBC and platelet. CMP showed an elevation in total protein to 8.7 with normal albumin of 4.8. Creatinine and LFTs were normal. Serology for hepatitis and HIV were negative. Serum erythropoietin level, JAK2 mutation, MPL and CLAR [place] mutation all were negative. CT scan of the chest showed evidence of emphysema. Patient was felt to have secondary polycythemia. Serum protein electrophoresis was negative for a monoclonal protein free light chains showed elevations in both kappa and lambda chain with a normal ratio. These changes were felt to most likely be related to underlying inflammation. Rheumatoid factor and LEIDY were strongly positive. Patient was referred to radio communications superintendent but she states that she has yet to hear anything about scheduling an appointment.- from September 14, 2021 WBC count 4.9, hemoglobin 16.0, hematocrit 48.1, platelet count 187. Globulin 4.5, creatinine 0.8- on December 02, 2022 patient returned to the office for follow-up visit. She reports that the right little toe has been very sensitive and swelled. She was seen by her primary care physician and had an x-ray to the food and was negative. Patient continues to smoke about 1 pack per day. She has never had phlebotomy in the past. She is on aspirin 81 mg daily. She has never had sleep study. She does not take any diuretics. CT scan of the chest from October 27, 2022 showed 1.8 cm right major fissure calcified granuloma with advanced emphysema. Hemoglobin A1c 5.8, creatinine 0.7, calcium 8.6, protein 7.2, albumin 3.8, globulin 3.4, WBC 6.2, hemoglobin 13.7, hematocrit 41.1, platelet count 217.- On December 30, 2022, patient returned for follow-up visit. She continues to have chronic shortness of breath, she denies any hemoptysis. On prior visit, she was complaining of pain and swelling in the right little toe. Patient has not been seen by podiatry. She feels much better right now and the right little toe is back to normal. Patient had a battery of blood work and she comes in today to discuss the results.- From December 02, 2022 : WBC 7.2, hemoglobin 14.5, hematocrit 44.5, platelet count 190. serum protein electrophoresis revealed no M spike. Serum free kappa light chain was elevated at 53, free lambda light chain elevated at 37, kappa/ lambda ratio 1.42. Serum viscosity 1.8, IgG level elevated at 2162, IgA and IgM were otherwise normal level. Patient presents July 27, 2023 for follow-up regarding secondary erythrocytosis. She notes she feels fairly well. She denies chest or abdominal pain. She denies palpitations or shortness of breath. She denies fever, chills, or night sweats. She denies any overt bleeding. She denies swelling, headaches, or clots. She reports she continues to smoke. She is eating and drinking well. YAZAN WASHINGTON, MACHINE PRECISION ENGRAVER [address] [facility],[address], [place], [address], [place] [facility] [place] [facility] [place] 07/28/2023 12:47:09 01/25/2024 text/html Mrs. Angela ledesma is very pleasant 58-year-old lady who returns for follow-up visit. Patient has been under the care of Dr. Dannie Cueto for secondary erythrocytosis, abnormality of plasma proteins, elevated rheumatoid factor and positive LEIDY. 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 She has long history of smoking and has smoked at least 1 pack per day for 40 years. Patient denies any snoring, gasping for air at night or history of obstructive sleep apnea. She does report frequent headaches, she has diffuse joint pain and occasional bone pain in the right femur. She denies any abdominal pain or fullness. She denies any weight loss, fever or chills. She denies any hematuria or dysuria. CBC from February 03, 2021 showed hemoglobin of 17, hematocrit 51.7, otherwise normal WBC and platelet. CMP showed an elevation in total protein to 8.7 with normal albumin of 4.8. Creatinine and LFTs were normal. Serology for hepatitis and HIV were negative. Serum erythropoietin level, JAK2 mutation, MPL and CLAR Lorena mutation all were negative. CT scan of the chest showed evidence of emphysema. Patient was felt to have secondary polycythemia. Serum protein electrophoresis was negative for a monoclonal protein free light chains showed elevations in both kappa and lambda chain with a normal ratio. These changes were felt to most likely be related to underlying inflammation. Rheumatoid factor and LEIDY were strongly positive. Patient was referred to radio communications superintendent but she states that she has yet to hear anything about scheduling an appointment.- from September 14, 2021 WBC count 4.9, hemoglobin 16.0, hematocrit 48.1, platelet count 187. Globulin 4.5, creatinine 0.8- on December 02, 2022 patient returned to the office for follow-up visit. She reports that the right little toe has been very sensitive and swelled. She was seen by her primary care physician and had an x-ray to the food and was negative. Patient continues to smoke about 1 pack per day. She has never had phlebotomy in the past. She is on aspirin 81 mg daily. She has never had sleep study. She does not take any diuretics. CT scan of the chest from October 27, 2022 showed 1.8 cm right major fissure calcified granuloma with advanced emphysema. Hemoglobin A1c 5.8, creatinine 0.7, calcium 8.6, protein 7.2, albumin 3.8, globulin 3.4, WBC 6.2, hemoglobin 13.7, hematocrit 41.1, platelet count 217.- On December 30, 2022, patient returned for follow-up visit. She continues to have chronic shortness of breath, she denies any hemoptysis. On prior visit, she was complaining of pain and swelling in the right little toe. Patient has not been seen by podiatry. She feels much better right now and the right little toe is back to normal. Patient had a battery of blood work and she comes in today to discuss the results.- From December 02, 2022 : WBC 7.2, hemoglobin 14.5, hematocrit 44.5, platelet count 190. serum protein electrophoresis revealed no M spike. Serum free kappa light chain was elevated at 53, free lambda light chain elevated at 37, kappa/ lambda ratio 1.42. Serum viscosity 1.8, IgG level elevated at 2162, IgA and IgM were otherwise normal level. Patient presents January 25, 2024 for follow-up regarding secondary erythrocytosis. She notes depression, as her daughter in the last few months. She denies chest or abdominal pain. She denies palpitations or shortness of breath. She denies fever, chills, or night sweats. She denies any overt bleeding. She denies swelling, headaches, or clots. She reports she continues to smoke. YAZAN WASHINGTON, MACHINE PRECISION ENGRAVER [address] [facility],[address], [place], [address], [facility] [place] [facility] [place] 02/10/2024 09:58:05 OBGyn Episode No OBEpisode recorded.
== END 2024-07-06 11:58 | disposition home or self-care (01) | DRG 190 ==
LOC: ER 12:19 → ICU 07-05 05:55 → 2ND 07-05 15:14
PROVIDERS: Internal Medicine Pulmonary Disease; Admitting Provider Student in an Organized Health Care Education/Training Program; Emergency Provider Emergency Medicine; PCP Family Medicine; Visit Provider Student in an Organized Health Care Education/Training Program
DX: J44.1 Chronic obstructive pulmonary disease with (acute) exacerbation (principal); G93.41 Metabolic encephalopathy; J96.01 Acute respiratory failure with hypoxia; J96.02 Acute respiratory failure with hypercapnia; J18.0 Bronchopneumonia, unspecified organism; E87.21 Acute metabolic acidosis; J30.9 Allergic rhinitis, unspecified; F41.9 Anxiety disorder, unspecified; G40.909 Epilepsy, unspecified, not intractable, without status epilepticus; R59.0 Localized enlarged lymph nodes; F32.A Depression, unspecified; F17.210 Nicotine dependence, cigarettes, uncomplicated; J22 Unspecified acute lower respiratory infection; B97.4 Respiratory syncytial virus as the cause of diseases classified elsewhere; Z79.51 Long term (current) use of inhaled steroids; Z79.899 Other long term (current) drug therapy; Z83.3 Family history of diabetes mellitus
CPT/HCPCS: 36415; 71045; 71275; 80053; 80061; 80320; 80329; 81001; 82009; 82803; 83735; 83880; 84145; 84436; 84443; 84484; 85025; 85378; 85610; 85730; 87040; 87070; 87205; 87633; 87636; 93005; 94640; 94761; 99291; J0456; J0696; J1650; J1885; J2919; J3475; J7030; J7050; J7120; J7620; Q9967